=== PATIENT | female | born 1950 | race Caucasian/White ===

== ENCOUNTER 2017-02-26 09:57 | Emergency (ER) | payer OTHER, BC ==
[~2017-02-26] VITALS: Ht 152.4 cm; Wt 60.0 kg
[~2017-02-26 09:57] MED LIST: ALBU1AER9 INH; ASPI81TA28 PO; BACL1TAB PO; CETI10TA10 PO; FEXO1TAB46 PO; FLUO0.05 TD; HYDR-3124 PO; LEVO75TA5 PO; MONT1TAB3 PO; OMAL150S SQ; PRED10TA PO; RANI300T2 PO; SNQ/25 PO; TNR25 PO; TRIA0.1O12 TD; [UNRECOGNIZED DRUG - CODE] TD; [UNRECOGNIZED DRUG - CODE] TD
[2017-02-26 10:06] VITALS: Ht 152.4 cm; Wt 60.0 kg
[2017-02-26] MEDS ORDERED: ONDANSETRON INJ 2 MG/ML 2 ML VIAL IV STA (10:16)
[2017-02-26] MEDS ORDERED: MoRPHine SULFATE 4 MG/ML 1 ML CARP\\VIAL IV STA ×2 (10:16→11:49)
[2017-02-26 10:34] LABS: BASO % 0.3 %; BASO ABS # 0.02 K/uL (0-0.2); COMPLETE YES; EOS % 1.7 %; HEMATOCRIT 42.2 % (37-47); LYMPH % 29.9 %; LYMPH ABS # 1.73 K/uL (1.2-3.4); MEAN CELL VOLUME 87.4 fL (80-100); MEAN CORPUSCULAR HEMOGLOBIN 30.8 pg (25-34); MEAN CORPUSCULAR HGB CONC 35.3 g/dl (32-36); MEAN PLATELET VOLUME 10.4 fL (7.4-10.4); MONO % 10.9 %; NEUT % 57.2 %; PLATELET COUNT 209 K/uL (130-400); RED BLOOD COUNT 4.83 M/uL (4.2-5.4); WHITE BLOOD COUNT 5.78 K/uL (4.8-10.8)
[2017-02-26 10:42] LABS: ALT/SGPT 26 U/L (12-78); BLOOD UREA NITROGEN 13 mg/dl (7-18); BUN/CREATININE RATIO 16.6 (10-20); CARBON DIOXIDE 25 mmol/L (21-32); CHLORIDE 106 mmol/L (98-107); CREATININE 0.77 mg/dl (0.60-1.20); GLUCOSE 98 mg/dl (70-99); POTASSIUM 3.9 mmol/L (3.5-5.1); SODIUM 141 mmol/L (136-145)
[2017-02-26 10:44] VITALS: O2SAT 100
[2017-02-26] MEDS ORDERED: DXY50 PO (10:46)
[2017-02-26] MEDS ORDERED: CZR25 PO (10:46)
[2017-02-26] MEDS ORDERED: FLX10 PO (10:46)
[2017-02-26] MEDS ORDERED: SYMIN160 INH (10:46)
[2017-02-26 10:47] LABS: ALKALINE PHOSPHATASE 51 U/L (45-117); AST/SGOT 14 U/L (15-37); CKMB/CK RATIO 2.7 (0-3.0)
[2017-02-26] MEDS ORDERED: VNTHFA/IN INH (10:47)
--- NOTE | 2017-02-26 10:52 | DIAGNOSTIC IMAGING REPORT ---
CHEST ONE VIEW PORTABLE CLINICAL HISTORY: Fever, sepsis, chest pain radiating to the back. COMPARISON STUDY: 04/18/2014 FINDINGS: The heart is the upper limits of normal in size. There is no failure. There is no focal pulmonary consolidation. There are no pleural effusions.[ IMPRESSION: AP portable study. No acute findings. Electronically signed by: Vinay Armando M.D. 02/26/2017 10:51 AM Dictated Date/Time: 02/26/2017 10:50 AM
[2017-02-26 11:05] LABS: URINE APPEARANCE CLEAR (CLEAR); URINE BILIRUBIN NEG (NEG); URINE COLOR YELLOW; URINE NITRITE NEG (NEG); URINE SPECIFIC GRAVITY 1.017 (1.000-1.030); UROBILINOGEN NEG (NEG)
[2017-02-26 11:12] LABS: PROTHROMBIN TIME (PATIENT) 10.9 SECONDS (9.0-12.0)
[2017-02-26 11:18] LABS: MANUAL MICROSCOPIC REQUIRED? NO; REVIEW REQ? NO
[2017-02-26] MEDS ORDERED: KETOROLAC TROMETHAMINE 30 MG/ML VIAL IV STA (11:49)
[2017-02-26] MEDS ORDERED: CYCLOBENZAPRINE HCL 10 MG TAB ONE (11:58)
[2017-02-26] MEDS ORDERED: CYCLOBENZAPRINE HCL 5 MG TAB PO ONE (12:00)
[2017-02-26] MEDS ORDERED: DEXAMETHASONE SOD INJ 10 MG/ML VIAL IV ONE (12:00)
--- NOTE | 2017-02-26 12:43 | DIAGNOSTIC IMAGING REPORT ---
THORACIC SPINE CT CT DOSE: 870.03 mGy.cm HISTORY: Pain back pain TECHNIQUE: Multiaxial CT images of the thoracic spine were performed and reformatted in the sagittal and coronal plane without the use of contrast. COMPARISON: Chest CT 03/07/2016 FINDINGS: Moderate degenerative disc change throughout the entire thoracic region. No acute compression deformity. Mild anterior and anterolateral osteophytic change. No significant compromise of the spinal canal or neural foramina. Infiltrative change in both lung bases and paravertebral regions slightly progressive from the prior study. This is somewhat more prominent on the right. IMPRESSION: 1. Mild/moderate degenerative change of the thoracic spine with no acute process. 2. Paravertebral interstitial and/or fibrotic changes involving the lower lung regions bilaterally. 3. These findings are somewhat progressive compared to a prior study of 2015, raising the possibility of a nonspecific pneumonitis of the lower lobes. Electronically signed by: Almas Arreguin M.D. 02/26/2017 12:41 PM Dictated Date/Time: 02/26/2017 12:37 PM
[2017-02-26] MEDS ORDERED: CYCL10TA6 PO (13:29)
[2017-02-26] MEDS ORDERED: OXYC-57 PO (13:29)
--- NOTE | 2017-02-26 13:32 | EMERGENCY ROOM VISIT NOTE ---
History Report prepared by Christy: Crystal Trivedi Under the Supervision of: Dr. Kosta Blake D.O. First contact with patient: 10:11 Chief Complaint: CARDIAC ASSESSMENT Stated Complaint: BACK PAIN-PAIN GOING INTO CHEST HX: ANEURYSM Nursing Triage Summary: Pain started in shoulder blades and radiates to chest. Worse on inspiration. History of ascending aortic aneurysm 4.2 cm. Saw PCP thursday, had EKG done and was told it was "worse." Could not sleep last night due to pain. Vomited twice this am. History of Present Illness The patient is a 66 year old female who presents to the Emergency Room for a cardiac assessment. The patient was having right sided back pain throughout the day yesterday, but she states that it was mild. Around midnight last night her pain started moving into the middle of her back and it became much more severe. She was unable to get comfortable and she was unable to sleep all night due to her pain. Early this morning the patient developed nausea, vomiting, and shortness of breath. She states that her pain is constant but she gets occasional shooting pains from the middle of her back into her right shoulder blade. The patient rates her current pain as an 8/10 in severity. Movement exacerbates her pain. She has a history of an ascending aortic aneurysm. She saw her PCP two days ago because she was having some chest heaviness with exertion. She had an ECG done at that time. 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 The patient states that she had similar pain when she injured a disc in her neck previously. Source of History: patient Onset: yesterday Position: back Symptom Intensity: 8/10 Quality: other (shooting) Timing: worsening Modifying Factors (Worsening): movement Associated Symptoms: + SOB, + nausea, + vomiting Review of Systems See HPI for pertinent positives & negatives. A total of 10 systems reviewed and were otherwise negative. Past Medical & Surgical Medical Problems: (1) Abdominal aortic aneurysm (2) ASTHMA, UNSPECIFIED (3) DEPRESSIVE DISORDER NEC (4) HYPERLIPIDEMIA NEC/NOS (5) HYPOTHYROIDISM NOS Family History Heart disease Myocarditis Social History Smoking Status: Never Smoker Marital Status: Housing Status: lives with family Occupation Status: other Current/Historical Medications Scheduled Albuterol Hfa (Ventolin Hfa), 2 PUFFS INH Q6H Aspirin (Aspirin Ec), 81 MG PO DAILY Atenolol (Atenolol), 25 MG PO DAILY Budesonide/Formoterol Fumarate (Symbicort 160/4.5 Inhaler), 1 PUFF INH BID Cetirizine Hcl (Zyrtec), 20 MG PO BID Cyclobenzaprine Hcl (Flexeril), 10 MG PO TID Doxepin (Sinequan), 25 MG PO HS Doxycycline Hyclate (Doxycycline Hyclate), 50 MG PO DAILY Levothyroxine Sodium (Levothyroxine Sodium), 75 MCG PO DAILY Losartan Potassium (Losartan Potassium), 25 MG PO DAILY Scheduled PRN Baclofen (Lioresal), 10 MG PO UD PRN for Muscle Spasms Benzoyl Peroxide-Erythromycin (Erythromycin/Benzoyl [place]), 1 APPLN TD BID PRN for RASH Cyclobenzaprine HCl (Cyclobenzaprine HCl), 10 MG PO BID PRN for Muscle Spasms Oxycodone/Acetaminophen 5MG/325MG (Percocet 5MG/325MG), 1 TAB PO Q6H PRN for Pain Allergies Coded Allergies: Isotretinoin (Verified Allergy, Unknown, MYALGIAS, 02/26/17) Sulfa Drugs (Verified Allergy, Unknown, 02/26/17) Physical Exam Vital Signs Date Time Temp Pulse Resp B/P (MAP) Pulse Ox O2 Delivery O2 Flow Rate FiO2 02/26/17 13:59 59 18 127/89 100 02/26/17 12:51 58 15 133/81 98 Room Air 02/26/17 11:59 65 22 116/72 100 02/26/17 10:44 100 Room Air 02/26/17 10:44 99 Room Air 02/26/17 10:44 62 18 123/76 99 Room Air 02/26/17 10:28 73 02/26/17 10:14 100 Room Air 02/26/17 10:11 100 Room Air 02/26/17 10:06 71 30 147/106 100 Room Air Physical Exam CONSTITUTIONAL/VITAL SIGNS: Reviewed / noted above. GENERAL: Non-toxic in appearance. INTEGUMENTARY: Warm, dry, and [place]. HEAD: Normocephalic. EYES: without scleral icterus or trauma. ENT/OROPHARYNX: clear and moist. LYMPHADENOPATHY/NECK: Is supple without lymphadenopathy or meningismus. RESPIRATORY: Lungs clear and equal. CARDIOVASCULAR: Regular rate and rhythm. GI/ABDOMEN: Soft and nontender. No organomegaly or pulsatile mass. No rebound or guarding. Normal bowel sounds. EXTREMITIES: Warm and well perfused. BACK: Increased pain with movement. She is tender to palpation in the perispinal musculature of the mid and lower back. NEUROLOGICAL: Intact without focal deficits. PSYCHIATRIC: normal affect. MUSCULOSKELETAL: Normally developed with good muscle tone. Medical Decision & Procedures ER Provider Diagnostic Interpretation: Radiology results as stated below per my review and radiologist interpretation: CHEST ONE VIEW PORTABLE CLINICAL HISTORY: Fever, sepsis, chest pain radiating to the back. COMPARISON STUDY: 04/18/2014 FINDINGS: The heart is the upper limits of normal in size. There is no failure. There is no focal pulmonary consolidation. There are no pleural effusions.[ IMPRESSION: AP portable study. No acute findings. Electronically signed by: Vinay Armando M.D. 02/26/2017 10:51 AM Dictated Date/Time: 02/26/2017 10:[address] DOSE: 870.03 mGy.cm HISTORY: Pain back pain TECHNIQUE: Multiaxial CT images of the thoracic spine were performed and reformatted in the sagittal and coronal plane without the use of contrast. COMPARISON: Chest CT 03/07/2016 FINDINGS: Moderate degenerative disc change throughout the entire thoracic region. No acute compression deformity. Mild anterior and anterolateral osteophytic change. No significant compromise of the spinal canal or neural foramina. Infiltrative change in both lung bases and paravertebral regions slightly progressive from the prior study. This is somewhat more prominent on the right. IMPRESSION: 1. Mild/moderate degenerative change of the thoracic spine with no acute process. 2. Paravertebral interstitial and/or fibrotic changes involving the lower lung regions bilaterally. 3. These findings are somewhat progressive compared to a prior study of 2016, raising the possibility of a nonspecific pneumonitis of the lower lobes. Electronically signed by: Almas Arreguin M.D. 02/26/2017 12:41 PM Dictated Date/Time: 02/26/2017 12:37 PM Laboratory Results 02/26/17 10:12 Red Blood Count 4.83, Mean Corpuscular Volume 87.4, Mean Corpuscular Hemoglobin 30.8, Mean Corpuscular Hemoglobin Concent 35.3, Mean Platelet Volume 10.4, Neutrophils (%) (Auto) 57.2, Lymphocytes (%) (Auto) 29.9, Monocytes (%) (Auto) 10.9, Eosinophils (%) (Auto) 1.7, Basophils (%) (Auto) 0.3, Neutrophils # (Auto ) 3.30, Lymphocytes # (Auto) 1.73, Monocytes # (Auto) 0.63, Eosinophils # (Auto ) 0.10, Basophils # (Auto) 0.02 02/26/17 10:12 Test 02/26/17 10:12 02/26/17 10:40 White Blood Count 5.78 K/uL (4.8-10.8) Red Blood Count 4.83 M/uL (4.2-5.4) Hemoglobin 14.9 g/dL (12.0-16.0) Hematocrit 42.2 % (37-47) Mean Corpuscular Volume 87.4 fL (80-100) Mean Corpuscular Hemoglobin 30.8 pg (25-34) Mean Corpuscular Hemoglobin Concent 35.3 g/dl (32-36) Platelet Count 209 K/uL (130-400) Mean Platelet Volume 10.4 fL (7.4-10.4) Neutrophils (%) (Auto) 57.2 % Lymphocytes (%) (Auto) 29.9 % Monocytes (%) (Auto) 10.9 % Eosinophils (%) (Auto) 1.7 % Basophils (%) (Auto) 0.3 % Neutrophils # (Auto) 3.30 K/uL (1.4-6.5) Lymphocytes # (Auto) 1.73 K/uL (1.2-3.4) Monocytes # (Auto) 0.63 K/uL (0.11-0.59) Eosinophils # (Auto) 0.10 K/uL (0-0.5) Basophils # (Auto) 0.02 K/uL (0-0.2) RDW Standard Deviation 42.9 fL (36.4-46.3) RDW Coefficient of Variation 13.4 % (11.5-14.5) Immature Granulocyte % (Auto) 0.0 % Immature Granulocyte # (Auto) 0.00 K/uL (0.00-0.02) Prothrombin Time 10.9 SECONDS (9.0-12.0) Prothromb Time International Ratio 1.0 (0.9-1.1) Activated Partial Thromboplast Time 25.8 SECONDS (21.0-31.0) Partial Thromboplastin Ratio 1.0 D-Dimer 330 ug/L FEU (0-500) Anion Gap 10.0 mmol/L (3-11) Est Creatinine Clear Calc Drug Dose 59.0 ml/min Estimated GFR () 93.9 Estimated GFR (Non- 81.0 BUN/Creatinine Ratio 16.6 (10-20) Calcium Level 9.0 mg/dl (8.5-10.1) Total Bilirubin 0.6 mg/dl (0.2-1) Direct Bilirubin < 0.1 mg/dl (0-0.2) Aspartate Amino Transf (AST/SGOT) 14 U/L (15-37) Alanine Aminotransferase (ALT/SGPT) 26 U/L (12-78) Alkaline Phosphatase 51 U/L (45-117) Total Creatine Kinase 49 U/L (26-192) Creatine Kinase MB 1.3 ng/ml (0.5-3.6) Creatine Kinase MB Ratio 2.7 (0-3.0) Troponin I < 0.015 ng/ml (0-0.045) Total Protein 7.1 gm/dl (6.4-8.2) Albumin 4.0 gm/dl (3.4-5.0) Lipase 207 U/L (73-393) Urine Color YELLOW Urine Appearance CLEAR (CLEAR) Urine pH 6.0 (4.5-7.5) Urine Specific [place] 1.017 (1.000-1.030) Urine Protein NEG (NEG) Urine Glucose (UA) NEG (NEG) Urine Ketones NEG (NEG) Urine Occult Blood NEG (NEG) Urine Nitrite NEG (NEG) Urine Bilirubin NEG (NEG) Urine Urobilinogen NEG (NEG) Urine Leukocyte Esterase NEG (NEG) Laboratory results as stated above per my review. Medications Administered Medications (Trade) Dose Ordered Sig/Mery Route Start Time Stop Time Status Last Admin Dose Admin Morphine Sulfate (MoRPHine SULFATE INJ) 4 mg NOW STAT IV 02/26/17 10:16 02/26/17 10:18 DC 02/26/17 10:30 4 MG Ondansetron HCl (Zofran Inj) 4 mg NOW STAT IV 02/26/17 10:16 02/26/17 10:18 DC 02/26/17 10:27 4 MG Ketorolac Tromethamine (Toradol Inj) 30 mg NOW STAT IV 02/26/17 11:49 02/26/17 11:51 DC 02/26/17 12:02 30 MG Dexamethasone Sodium Phosphate (Decadron Inj) 10 mg NOW ONCE IV 02/26/17 12:00 02/26/17 12:01 DC 02/26/17 12:01 10 MG Morphine Sulfate (MoRPHine SULFATE INJ) 4 mg NOW STAT IV 02/26/17 11:49 02/26/17 11:51 DC 02/26/17 12:04 4 MG Cyclobenzaprine HCl (Flexeril Tab) 10 mg STK-MED ONCE .ROUTE 02/26/17 11:58 02/26/17 11:59 DC 02/26/17 12:05 10 MG ECG Indication: back/shoulder pain Rate (beats per minute): 67 Rhythm: normal sinus Findings: ST depression (inferior and lateral), no ectopy Comparison ECG Date: 02/24/2017 Change: no significant change Change: Also compared to ECG from 2013: Similar to previous but slightly more prominent T-wave changes. ED Course 1022: Previous medical records were reviewed. The patient was evaluated in room B3B. A complete history and physical examination was performed. 1016: Zofran 4 mg IV, Morphine sulfate 4 mg IV 1141: I reevaluated the patient at this time. She is still having pain and is going to get a CT scan. 1149: Morphine sulfate 4 mg IV, Toradol 30 mg IV 1158: Flexeril 10 mg PO 1200: Decadron 10 mg IV 1321: I reassessed the patient at this time. She is feeling better and resting comfortably. I discussed the results and treatment plan with the patient. I answered all pertaining questions that she had. She expressed understanding and verbalized agreement. The patient will be discharged home. Medical Decision Differential considered includes cauda equina syndrome, conus medullaris, spinal cord compression syndrome, peripheral nerve compression, fractures or subluxations, intra-abdominal pathology such as abdominal aortic aneurysm or kidney stones, muscle strain, transverse myelitis, spinal cord injury. Medication Reconciliation: I attest that I have personally reviewed the patient' s current medication list. Blood pressure Screening: Patient was found to have normal blood pressure on screening and does not require follow-up. This is a 66-year-old female who presents to the ED with a chief complaint of back pain. The patient states that her symptoms started in the shoulder blade area and now moved to the mid back. She reported some increased pain with movement as well as deep breathing. Her physical exam revealed some tenderness on palpation of the paraspinal musculature. She does have a history of an aortic aneurysm. Her CBC was normal. D-dimer is negative as is troponin. Complete metabolic panel was normal. Lipase was negative. Urine did not show infection. Chest x-ray is negative for acute disease. CT scan of the thoracic spine reveals degenerative changes otherwise nothing acute. Patient was treated with IV morphine, IV Zofran, IV Toradol, IV Decadron and Flexeril by mouth. On reassessment, her symptoms have improved. She is feeling more comfortable. She'll be discharged on Flexeril and Percocet. She is felt to be stable for discharge at this time. Impression Primary Impression: Back muscle spasm Scribe Attestation The scribe's documentation has been prepared under my direction and personally reviewed by me in its entirety. I confirm that the note above accurately reflects all work, treatment, procedures, and medical decision making performed by me. Departure Information Dispostion Home / Self-Care Prescriptions Cyclobenzaprine Hcl (FLEXERIL) 10 Mg Tab 10 MG PO TID, #21 TAB Prov: Kosta Blake D.O. 02/26/17 Oxycodone/Acetaminophen 5MG/325MG (PERCOCET 5MG/325MG) Tab 1 TAB PO Q6H Y for Pain, #20 TAB Prov: Kosta Blake D.O. 02/26/17 Referrals Marcy Rodriguez M.D. (PCP) Patient Instructions ED Spasm Back No Trauma, My [facility] Additional Instructions Percocet as prescribed. No driving within 6 hours of use. Do not take additional Tylenol while taking Percocet. Flexeril as prescribed for muscle spasm. May cause drowsiness. Follow-up with your doctor for further care and evaluation in 1-2 days. Return to the emergency department for worsening or new symptoms or any concerns. You have been examined and treated today on an emergency basis only. This is not a substitute for, or an effort to provide, complete comprehensive medical care. It is impossible to recognize and treat all injuries or illnesses in a single emergency department visit. It is therefore important that you follow up closely with your doctor. Call as soon as possible for an appointment.
[2017-02-26 13:59] VITALS: BP 127/89; PULSE 59; O2SAT 100
== END 2017-02-26 13:55 | disposition home or self-care (01) ==
LOC: C.EDB 09:59
DX: M62.830 Muscle spasm of back (principal); I71.4 Abdominal aortic aneurysm, without rupture; J45.909 Unspecified asthma, uncomplicated; R06.02 Shortness of breath; F32.9 Major depressive disorder, single episode, unspecified; E78.5 Hyperlipidemia, unspecified; E03.9 Hypothyroidism, unspecified; M51.34 Other intervertebral disc degeneration, thoracic region; Z79.82 Long term (current) use of aspirin

== ENCOUNTER → 2017-03-03 | Outpatient (CLI) | payer OTHER, BC ==
[~2017-03-03] MED LIST changes: -ALBU1AER9 INH; +CYCL10TA6 PO; +CZR25 PO; +DXY50 PO; -FEXO1TAB46 PO; -FLUO0.05 TD; +FLX10 PO; -HYDR-3124 PO; -MONT1TAB3 PO; -OMAL150S SQ; +OXYC-57 PO; -PRED10TA PO; -RANI300T2 PO; +SYMIN160 INH; -TRIA0.1O12 TD; +VNTHFA/IN INH; -[UNRECOGNIZED DRUG - CODE] TD
== END | disposition home or self-care (01) ==
LOC: C.LAB 15:01
PROVIDERS: ATTEND Physician Assistant
DX: J45.909 Unspecified asthma, uncomplicated (principal)

== ENCOUNTER → 2017-03-23 | Outpatient (CLI) | payer OTHER, BC ==
[~2017-03-23] MED LIST changes: -CYCL10TA6 PO
--- NOTE | 2017-03-23 12:23 | DIAGNOSTIC IMAGING REPORT ---
CT OF THE CHEST WITHOUT IV CONTRAST CLINICAL HISTORY: Abnormal lung CT. Shortness of breath. COMPARISON STUDY: Chest CT March 07, 2016 and June 11, [address] February 26, 2017. CT DOSE: 295.76 mGycm TECHNIQUE: Axial images of the chest were obtained without IV contrast. Images were reviewed in the axial, sagittal, and coronal planes. IV contrast was not administered for this examination. FINDINGS: No enlarged axillary, mediastinal or hilar lymph nodes are present. Mild dilatation of the ascending aorta, measuring 4 cm at the level the main pulmonary artery is unchanged. There is mild to moderate cardiomegaly. No pericardial effusion is present. No pneumothorax or pleural effusion is present. Ground glass opacities within the right lower lobe suggest atelectasis. There is no consolidation to suggest pneumonia. A 4 mm lingular nodule shown on image 95 of 276 is unchanged. Bony thorax is unremarkable. Visualized portions of the upper abdomen demonstrate scarring within the upper pole of the left kidney. Gallbladder is surgically absent. IMPRESSION: 1. No acute findings within the chest. 2. Subpleural right lower lobe opacity which favors atelectasis. 3. Stable 4 mm lingular nodule which is benign given stability. 4. Stable mild dilatation of the ascending aorta, measuring 4 cm. Electronically signed by: Joce Elizondo M.D. 03/23/2017 12:22 PM Dictated Date/Time: 03/23/2017 12:14 PM
== END | disposition home or self-care (01) ==
LOC: C.CTS 10:50
PROVIDERS: ATTEND Physician Assistant
DX: R91.8 Other nonspecific abnormal finding of lung field (principal)

== ENCOUNTER 2023-05-05 10:47 | Inpatient (IN) ==
--- NOTE | 2023-04-09 13:42 | Anesthesiology Progress Note ---
Date of Service April 09, 2023 Anesthesia Post Procedure Transfer of Care Handoff Completed per policy Notes Mental Status: alert / awake / arousable Patient Amnestic to Procedure: Yes Nausea / Vomiting: adequately controlled Pain: adequately controlled Airway Patency, RR, SpO2: stable & adequate BP & HR: stable & adequate Hydration State: stable & adequate Anesthetic Complications: no major complications apparent
--- NOTE | 2023-04-13 11:24 | PAT Medication Instructions ---
Medication Instructions Date of Service April 13, 2023 Home Medications Medication Instructions Recorded albuterol sulfate 90 mcg/actuation 2 inh inhalation Q4H PRN shortness 06/18/20 breath activated powder inhaler of breath or wheezing #1 ea ipratropium 0.5 mg-albuterol 3 mg 3 ml inhalation QID PRN wheezing 09/10/20 (2.5 mg base)/3 mL nebulization #180 mL soln ipratropium bromide 21 mcg (0.03 See Rx Instructions .Route 06/09/22 %) nasal spray .COMPLEX #30 mL zafirlukast 20 mg tablet See Rx Instructions .Route 06/09/22 .COMPLEX #60 tabs misoprostol 200 mcg tablet 200 mcg vaginal ONCE #3 tabs 03/30/23 albuterol sulfate 2.5 mg/3 mL (0.083 %) solution for nebulization 1.25 mg inhalation Q4H PRN doxycycline hyclate 50 mg capsule 50 mg PO DAILY PRN epinephrine 0.3 mg/0.3 mL injection, auto-injector 0.3 mg IM Q10M PRN losartan 25 mg tablet 25 mg PO QAM baclofen 10 mg tablet 10 mg PO DAILY PRN albuterol sulfate 90 mcg/actuation breath activated powder inhaler 2 inh inhalation Q4H PRN ipratropium 0.5 mg-albuterol 3 mg (2.5 mg base)/3 mL nebulization soln 3 ml inhalation QID PRN budesonide-formoterol HFA 80 mcg-4.5 mcg/actuation aerosol inhaler (Symbicort) 1 inh inhalation BID tiotropium bromide 1.25 mcg/actuation mist for inhalation (Spiriva Respimat) 2 puff inhalation BID gabapentin 100 mg capsule 100 mg PO DAILY PRN ipratropium bromide 21 mcg (0.03 %) nasal spray See Rx Instructions .Route .COMPLEX rosuvastatin 5 mg tablet 25 mg PO QAM spironolactone 25 mg tablet 50 mg PO QAM zafirlukast 20 mg tablet See Rx Instructions .Route .COMPLEX misoprostol 200 mcg tablet 200 mcg vaginal ONCE aspirin 81 mg capsule 81 mg PO QAM azelastine 137 mcg (0.1 %) nasal spray aerosol 1 spray intranasal QAM cetirizine 5 mg tablet 5 mg PO DAILY fluticasone propionate 50 mcg/actuation nasal spray,suspension 1 spray intranasal BID levothyroxine 75 mcg tablet 75 mcg PO QAM metoprolol tartrate 25 mg tablet 25 mg PO QAM Continue as directed ipratropium bromide 21 mcg (0.03 %) nasal spray See Rx Instructions .Route .COMPLEX zafirlukast 20 mg tablet See Rx Instructions .Route .COMPLEX gabapentin 100 mg capsule 100 mg PO DAILY PRN(if needed) doxycycline hyclate 50 mg capsule 50 mg PO DAILY PRN(if needed) epinephrine 0.3 mg/0.3 mL injection, auto-injector 0.3 mg IM Q10M PRN(if needed) ASK your prescriber and surgeon misoprostol 200 mcg tablet 200 mcg vaginal ONCE aspirin 81 mg capsule 81 mg PO QAM DO NOT take the morning of surgery losartan 25 mg tablet 25 mg PO QAM baclofen 10 mg tablet 10 mg PO DAILY PRN spironolactone 25 mg tablet 50 mg PO QAM cetirizine 5 mg tablet 5 mg PO DAILY Take morning of surgery With a small sip of water, OTHERWISE NOTHING TO EAT OR DRINK AFTER MIDNIGHT: albuterol sulfate 2.5 mg/3 mL (0.083 %) solution for nebulization 1.25 mg inhalation Q4H PRN(if needed) albuterol sulfate 90 mcg/actuation breath activated powder inhaler 2 inh inhalation Q4H PRN(if needed) ipratropium 0.5 mg-albuterol 3 mg (2.5 mg base)/3 mL nebulization soln 3 ml inhalation QID PRN(if needed) budesonide-formoterol HFA 80 mcg-4.5 mcg/actuation aerosol inhaler (Symbicort) 1 inh inhalation BID tiotropium bromide 1.25 mcg/actuation mist for inhalation (Spiriva Respimat) 2 puff inhalation BID azelastine 137 mcg (0.1 %) nasal spray aerosol 1 spray intranasal QAM fluticasone propionate 50 mcg/actuation nasal spray,suspension 1 spray intranasal BID levothyroxine 75 mcg tablet 75 mcg PO QAM metoprolol tartrate 25 mg tablet 25 mg PO QAM Take evening before surgery albuterol sulfate 2.5 mg/3 mL (0.083 %) solution for nebulization 1.25 mg inhalation Q4H PRN(if needed) albuterol sulfate 90 mcg/actuation breath activated powder inhaler 2 inh inhalation Q4H PRN(if needed) ipratropium 0.5 mg-albuterol 3 mg (2.5 mg base)/3 mL nebulization soln 3 ml inhalation QID PRN(if needed) budesonide-formoterol HFA 80 mcg-4.5 mcg/actuation aerosol inhaler (Symbicort) 1 inh inhalation BID tiotropium bromide 1.25 mcg/actuation mist for inhalation (Spiriva Respimat) 2 puff inhalation BID fluticasone propionate 50 mcg/actuation nasal spray,suspension 1 spray intranasal BID Other Notes If you have any questions please call us at [phone] or [phone] or [phone] or [phone]
--- NOTE | 2023-04-21 11:02 | Anesthesiology Consultation ---
Date of Service April 21, 2023 Assessment & Plan (1) Encounter for pre-operative examination: Plan - waiting for Claudia with surgeon's office confirmation of procedure details, pt believes procedure is L1-S1 decompression/fusion with instrumentation replacement to pre-existing hardware. - awaiting surgeon ordered medical clearance. - cardiology clearance 04/20/23 [facility]: "...moderate risk...cleared for scheduled surgery..." - cardiology 04/02/23 [facility]: "...preoperative cardiology consultation...Notes plans for spinal fusion by Dr. Valdivia at [facility] (unscheduled). Notes undergoing cardiac workup while in [place] the spring, nuclear stress test leading to diagnostic cardiac catheterization revealing angiographically normal coronary arteries on November 21, 2022. Echo in December 2022 with preserved LV systolic function, EF 55 to 60%, diastolic dysfunction , mild aortic, mitral, and tricuspid regurgitation, mildly dilated aortic root. No exertional or activity related chest discomfort, significantly limited by the back pain. No tachypalpitations. Stable shortness of breath. No fluid retention now that she is back on spironolactone...preoperative cardiology consultation as detailed above. Patient with a chronically abnormal EKG; results today unchanged compared to prior. Diagnostic cardiac catheterization in November 2022 revealed angiographically normal coronary arteries. Resting echocardiography in December 2022 with preserved LV systolic function, mild valve issues only, diastolic dysfunction. Options discussed. Risks explained. No overt cardiac contraindications to surgery as planned. Recommend uninterrupted continuation of metoprolol throughout the perioperative period Recommend holding losartan and spironolactone the morning of the procedure, resuming postoperatively as hemodynamics permit. OK to interrupt aspirin if needed, resuming postoperatively when determined to be safe..." Chart Review Chart Review: Pending: Refer to Additional Notes / Consult section and Patient seen in Pre Admission Testing Teaching & Discussion Pre-Anesthesia Teaching/Discussion Notes: Instructed NPO after midnight before surgery, except medications with 15 cc of water. Medication instructions provided according to the PAT guidelines. History Surgery Operation Date: 05/05/23 07:45 Proposed Procedures p Posterior Fusion Instrumentation - Austin Valdivia DO Height/Weight Height: 5 ft Weight: 73.1 kg Allergies Allergy/AdvReac Type Severity Reaction Status Date / Time diphtheria, pertussis, Allergy Intermediate rash Verified 04/21/23 13:19 tetanus vacc isotretinoin Allergy Unknown MYALGIAS Verified 04/13/23 10:09 latex Allergy Unknown Rash Verified 04/13/23 10:09 Sulfa (Sulfonamide Allergy Unknown Rash Verified 04/13/23 10:09 Antibiotics) Medications Home Medications Medication Instructions Recorded Confirmed Last Taken albuterol sulfate 2.5 mg/3 mL 1.25 mg inhalation Q4H PRN 04/28/19 04/13/23 Unknown (0.083 %) solution for nebulization Shortness Of Breath Or Wheezing doxycycline hyclate 50 mg capsule 50 mg PO DAILY PRN acne flare up 04/28/19 04/13/23 Unknown epinephrine 0.3 mg/0.3 mL 0.3 mg IM Q10M PRN Allergic 04/28/19 04/13/23 Unknown injection, auto-injector Reaction losartan 25 mg tablet 25 mg PO QAM 05/03/19 04/13/23 04/08/23 09:00 baclofen 10 mg tablet 10 mg PO DAILY PRN Muscle Spasm 03/14/20 04/13/23 Unknown albuterol sulfate 90 mcg/actuation 2 inh inhalation Q4H PRN shortness 06/18/20 04/13/23 04/08/23 11:00 breath activated powder inhaler of breath or wheezing #1 ea ipratropium 0.5 mg-albuterol 3 mg 3 ml inhalation QID PRN wheezing 09/10/20 04/13/23 Unknown (2.5 mg base)/3 mL nebulization #180 mL soln budesonide-formoterol HFA 80 1 inh inhalation BID 02/26/22 04/13/23 04/08/23 10:00 mcg-4.5 mcg/actuation aerosol inhaler (Symbicort) tiotropium bromide 1.25 2 puff inhalation BID 02/26/22 04/13/23 04/08/23 15:00 mcg/actuation mist for inhalation (Spiriva Respimat) gabapentin 100 mg capsule 100 mg PO DAILY PRN Pain 06/09/22 04/13/23 03/19/23 10:00 ipratropium bromide 21 mcg (0.03 See Rx Instructions .Route 06/09/22 04/13/23 Unknown %) nasal spray .COMPLEX #30 mL rosuvastatin 5 mg tablet 25 mg PO QAM 09/04/13/23 04/08/23 09:00 spironolactone 25 mg tablet 50 mg PO QAM 06/09/22 04/13/23 04/08/23 09:00 zafirlukast 20 mg tablet See Rx Instructions .Route 06/09/22 04/13/23 04/08/23 10:00 .COMPLEX #60 tabs aspirin 81 mg capsule 81 mg PO QAM 04/01/23 04/13/23 04/08/23 10:00 azelastine 137 mcg (0.1 %) nasal 1 spray intranasal QAM 04/01/23 04/13/23 04/02/23 10:00 spray aerosol cetirizine 5 mg tablet 5 mg PO DAILY 04/01/23 04/13/23 04/07/23 19:00 fluticasone propionate 50 1 spray intranasal BID 04/01/23 04/13/23 04/07/23 21:00 mcg/actuation nasal spray,suspension levothyroxine 75 mcg tablet 75 mcg PO QAM 04/01/23 04/13/23 04/08/23 09:00 metoprolol tartrate 25 mg tablet 25 mg PO QAM 04/01/23 04/13/23 04/09/23 07:00 Past Medical History Medical History (Updated 04/21/23 @ 13:19 by Janina Patel PA-C) Acne vulgaris occasional flare up Asthma uses inhalers daily Diverticulitis last episode > 1 month ago GERD (gastroesophageal reflux disease) stable per pt History of basal cell carcinoma back s/p excision > 30 yrs ago HTN (hypertension) controlled, stable per pt Hyperlipidemia Hypothyroidism Pulmonary nodule Thoracic aortic aneurysm 4.3 cm, monitoring - follows w/ S Samir Galvez Patient denies h/o stroke, seizures, heart attack, heart failure, DM, blood clots or blood transfusions. Exercise / Class Metabolic Activity II 4-5 Yardwork/Stairs/Walk up hill (occ shortness of breath with stairs if experiencing asthma flare, otherwise no shortness of breath with usual activities, denies chest discomfort; denies recent shortness of breath with act ivities) Past Family History Family History Mother Alzheimer disease Father Atrial fibrillation Denies family history of Ovarian cancer Breast cancer Colorectal cancer Past Surgical History Surgical History H/O dilation and curettage H/O Spinal surgery History of hysteroscopy History of tubal ligation Hx of appendectomy Hx of cardiac catheterization 11/2022- no stents - done at [facility] [place], [place] Hx of colonoscopy Hx of resection of large bowel sigmoid, diverticulitis Hx of tonsillectomy S/P cholecystectomy Past Anesthesia History No Hx of Anesthesia Complications and No Family Hx of Anesthesia Complications History of PONV No Hx of PONV and Hx of Motion Sickness Social History Smoking Status: Never smoker Do You Dip or Chew Tobacco: No Hx Alcohol Use: No Hx Substance Use: No substance use type: does not use Review of Systems Patient denies chest pain, snoring, witnessed apneas, reflux, fever, chills, cough, wheezing, or palpitations. Physical Exam Vital Signs Vitals BP 118/82 P 66 TEMP 97.7 SP02 98% on RA RESP 18 Physical Patient resting comfortably in chair in NAD, alert and oriented, responding appropriately throughout visit Full cervical extension range of motion without pain TMD 3.5 finger breadths Mallampati Score 2 Dentition: one crown, denies chipped or loose teeth, caps, implants or bridges Lungs: normal respiratory effort. Good air movement, clear throughout to auscultation, no adventitious breath sounds Cardiac: regular rate and rhythm, no murmurs noted Carotid arteries: negative bruit bilat Lab Results Anesthesia Preop Results Results Anesthesia Widget: WBC 5.97 K/ul (4.8-10.8) 03/30/23 Hgb 14.6 g/dl (12.0-16.0) 03/30/23 Hct 42.1 % (37.0-47.0) 03/30/23 Plt 178 K/uL (130-400) 03/30/23 Na 135 mmol/L (136-145) L 04/09/23 K 3.7 mmol/L (3.5-5.1) 04/09/23 Cl 104 mmol/L (98-107) 04/09/23 CO2 22 mmol/L (21-32) 04/09/23 BUN 18 mg/dl (6-23) 04/09/23 Creat 0.79 mg/dl (0.6-1.2) 04/09/23 Glucose Level 110 mg/dl (70-99(Fasting)) H 04/09/23 PT 11.4 Seconds (9.0-12.0) 04/21/23 PTT 27.3 Seconds (21.0-31.0) 04/21/23 INR 1.0 (0.9-1.1) 04/21/23 Urine Color Yellow 04/21/23 Urine Appearance Clear (Clear) 04/21/23 Urine pH 6.0 (4.5-7.5) 04/21/23 Urine Specific Sims 1.013 (1.000-1.030) 04/21/23 Urine Protein Negative (Negative) 04/21/23 Urine Glucose (UA) Negative (Negative) 04/21/23 Urine Ketones Negative (Negative) 04/21/23 Urine Blood Negative (Negative) 04/21/23 Urine Nitrite Negative (Negative) 04/21/23 Urine Bilirubin Negative (Negative) 04/21/23 Urine Urobilinogen Negative (Negative) 04/21/23 Urine Leukocyte Esterase Negative (Negative) 04/21/23 Blood Type A Negative 04/21/23 Antibody Screen NEGATIVE 04/21/23 Testing Electrocardiogram Date: 04/02/23 Sinus rhythm with PACs, rate [address] and T wave abnormality, consider inferior ischemia ST &T wave abnormality, consider anterolateral ischemia When compared with 03/27/22 EKG, PACs are now present Obtained at same cardio appt: "...When compared to prior available tracings, there was no significant change..." Chest X-Ray Date: 04/21/23 No acute chest disease Echocardiogram Date: 01/05/23 EF 55-60% Borderline cLVH Mild mitral regurgitation Mild tricuspid regurgitation Mildly dilated aortic root at 4. 2cm RVSP at 45 mmHg Stress Test Date: 12/22/19 No significant stress-induced ischemia Cardiac Catheterization Date: 11/21/22 Normal coronary arteries Other Testing Carotid doppler 06/11/22 < 50% stenosis ICAs bilat CTA chest 12/22/19 Ascending thoracic aorta measures 4.4 cm in greatest diameter which is top normal in size. No aortic dissection. Cardiomegaly
[~2023-05-05 10:47] MED LIST changes: +ACETAMINOPHEN 500 MG TAB PO SCH; -ASPI81TA28 PO; -BACL1TAB PO; -CETI10TA10 PO; -CZR25 PO; -DXY50 PO; -FLX10 PO; +GABAPENTIN 300 MG CAP PO SCH; -LEVO75TA5 PO; +LR 15ML/HR IV SCH; +LR 60ML/HR IV SCH; -OXYC-57 PO; -SNQ/25 PO; -SYMIN160 INH; -TNR25 PO; -VNTHFA/IN INH; -[UNRECOGNIZED DRUG - CODE] TD; +ceFAZolin 2000MG 2,000 MG/15 ML SYR IV SCH
--- NOTE | 2023-05-05 10:58 | History & Physical Bridge Note ---
Date of Service May 05, 2023 History & Physical Bridge Note I have examined the patient, reviewed the History & Physical and in the interval since the performance of the History & Physical I have noted the following changes of clinical significance: no changes noted
--- NOTE | 2023-05-05 10:59 | History & Physical Report ---
Date of Service May 05, 2023 Assessment & Plan (1) Neurogenic claudication due to lumbar spinal stenosis: Plan: L2-L4 decompression and fusion, L4-S1 hardware removal History of Present Illness Chief Complaint: Back and leg pain Primary Care Provider: Kimo Dick MD This is a 72-year-old female who presents with chronic persistent back and leg pain after failing course of nonoperative care is here for surgical invention. Allergies Allergy/AdvReac Type Severity Reaction Status Date / Time diphtheria, pertussis, Allergy Intermediate rash Verified 04/21/23 13:19 tetanus vacc isotretinoin Allergy Unknown MYALGIAS Verified 04/13/23 10:09 latex Allergy Unknown Rash Verified 04/13/23 10:09 Sulfa (Sulfonamide Allergy Unknown Rash Verified 04/13/23 10:09 Antibiotics) Home Medications Medication Instructions Recorded Confirmed Type albuterol sulfate 2.5 mg/3 mL 1.25 mg inhalation Q4H PRN 04/28/19 04/13/23 History (0.083 %) solution for nebulization Shortness Of Breath Or Wheezing doxycycline hyclate 50 mg capsule 50 mg PO DAILY PRN acne flare up 04/28/19 04/13/23 History epinephrine 0.3 mg/0.3 mL 0.3 mg IM Q10M PRN Allergic 04/28/19 04/13/23 History injection, auto-injector Reaction losartan 25 mg tablet 25 mg PO QAM 05/03/19 04/13/23 History baclofen 10 mg tablet 10 mg PO DAILY PRN Muscle Spasm 03/14/20 04/13/23 History albuterol sulfate 90 mcg/actuation 2 inh inhalation Q4H PRN shortness 06/18/20 04/13/23 Rx breath activated powder inhaler of breath or wheezing #1 ea ipratropium 0.5 mg-albuterol 3 mg 3 ml inhalation QID PRN wheezing 09/10/20 04/13/23 Rx (2.5 mg base)/3 mL nebulization #180 mL soln budesonide-formoterol HFA 80 1 inh inhalation BID 02/26/22 04/13/23 History mcg-4.5 mcg/actuation aerosol inhaler (Symbicort) tiotropium bromide 1.25 2 puff inhalation BID 02/26/22 04/13/23 History mcg/actuation mist for inhalation (Spiriva Respimat) gabapentin 100 mg capsule 100 mg PO DAILY PRN Pain 06/09/22 04/13/23 History ipratropium bromide 21 mcg (0.03 See Rx Instructions .Route 06/09/22 04/13/23 Rx %) nasal spray .COMPLEX #30 mL rosuvastatin 5 mg tablet 25 mg PO QAM 06/09/22 04/13/23 History spironolactone 25 mg tablet 50 mg PO QAM 06/09/22 04/13/23 History zafirlukast 20 mg tablet See Rx Instructions .Route 06/09/22 04/13/23 Rx .COMPLEX #60 tabs aspirin 81 mg capsule 81 mg PO QAM 04/01/23 04/13/23 History azelastine 137 mcg (0.1 %) nasal 1 spray intranasal QAM 04/01/23 04/13/23 History spray aerosol cetirizine 5 mg tablet 5 mg PO DAILY 04/01/23 04/13/23 History fluticasone propionate 50 1 spray intranasal BID 04/01/23 04/13/23 History mcg/actuation nasal spray,suspension levothyroxine 75 mcg tablet 75 mcg PO QAM 04/01/23 04/13/23 History metoprolol tartrate 25 mg tablet 25 mg PO QAM 04/01/23 04/13/23 History Past Med/Surg History Medical History (Updated 05/05/23 @ 10:59 by Austin Valdivia DO) Acne vulgaris occasional flare up Asthma uses inhalers daily Diverticulitis last episode > 1 month ago GERD (gastroesophageal reflux disease) stable per pt History of basal cell carcinoma back s/p excision > 30 yrs ago HTN (hypertension) controlled, stable per pt Hyperlipidemia Hypothyroidism Pulmonary nodule Thoracic aortic aneurysm 4.3 cm, monitoring - follows w/ Juan M Galvez Surgical History H/O dilation and curettage H/O Spinal surgery History of hysteroscopy History of tubal ligation Hx of appendectomy Hx of cardiac catheterization 11/2022- no stents - done at [facility]. [place], [place] Hx of colonoscopy Hx of resection of large bowel sigmoid, diverticulitis Hx of tonsillectomy S/P cholecystectomy Family History Mother Alzheimer disease Father Atrial fibrillation Denies family history of Ovarian cancer Breast cancer Colorectal cancer Social History Smoking Status: Never smoker Second Hand Exposure: No; Do You Dip or Chew Tobacco: No; Hx Alcohol Use: No Hx Substance Use: No Preferred Language: Danish Communication Ability: Effective Medical Claims Processor Required: No Beliefs That Will Affect Care: None marital status: Current Living Situation: Spouse current occupational status: retired Feels Safe at Home: Yes Safety Concerns: Feels Safe At This Time Assistive Devices: None Physical Exam Physical Exam: Patient is alert and oriented Heart regular rhythm Lungs clear
[2023-05-05] MEDS ORDERED: PROMETHAZINE HCL 6.25 MG in SODIUM CHLORIDE 0.9% 50 ML IV PRN (12:41)
[2023-05-05] MEDS ORDERED: fentaNYL citrate PF 100 MCG/2 ML VIAL IV PRN (12:41)
[2023-05-05] MEDS ORDERED: ATROPINE SULFATE 0.1 MG/ML 10ML SYR IV PRN (12:41)
[2023-05-05] MEDS ORDERED: HYDROmorphone INJ 2 MG/ML SYR/VIAL IV PRN (12:41)
[2023-05-05] MEDS ORDERED: ONDANSETRON INJ 2 MG/ML 2 ML VIAL IV PRN (12:41)
[2023-05-05] MEDS ORDERED: ePHEDrine sulfate 50 MG/ML AMP IV PRN (12:41)
[2023-05-05] MEDS ORDERED: PROPOFOL IV EMULSION 10 MG/ML 20 ML VIAL IV ONE (13:02)
[2023-05-05] MEDS ORDERED: DEXAMETHASONE SOD INJ 4 MG/ML VIAL ONE (13:02)
[2023-05-05] MEDS ORDERED: MIDAZOLAM HCL 1 MG/ML 2ML VIAL ONE (13:02)
[2023-05-05] MEDS ORDERED: ROCURONIUM BROMIDE 10 MG/ML 5 ML VIAL IV ONE ×3 (13:02→16:04)
[2023-05-05] MEDS ORDERED: LIDOCAINE 2% 2 ML VIAL/AMP(20MG/ML) INFIL ONE (13:02)
[2023-05-05] MEDS ORDERED: fentaNYL citrate PF 100 MCG/2 ML VIAL ONE ×2 (13:02→16:13)
[2023-05-05] MEDS ORDERED: ONDANSETRON INJ 2 MG/ML 2 ML VIAL ONE (13:02)
[2023-05-05] MEDS ORDERED: BUPIVACAINE/EPINEPHRINE 0.25% 1:200,000 30 ML VIAL ONE (14:06)
[2023-05-05] MEDS ORDERED: ceFAZolin 330 MG/ML 1 GM VIAL ONE (14:06)
[2023-05-05] MEDS ORDERED: ePHEDrine sulfate 50 MG/ML SYR ONE (14:46)
[2023-05-05] MEDS ORDERED: FLOSEAL HEMOSTATIC MATRIX 10ML TOP ONE (15:32)
[2023-05-05] MEDS ORDERED: SUGAMMADEX SODIUM 200 MG/2 ML VIAL IV ONE (17:07)
--- NOTE | 2023-05-05 17:21 | Operative Report ---
Post Operative Report Pre & Post Diagnosis Operation Date: 05/05/23 12:25 Pre-Op Diagnosis: Lumbar spinal stenosis with neurogenic claudication Post-Op Diagnosis: Same I identified the patient and participated in the time-out.: Yes Procedure Operation Date: 05/05/23 12:25 Actual Procedures #1 removal of posterior instrumentation L4-5 L5-S1. #2 exploration of fusion L4-L5 L5-S1. #3 revision decompression including bilateral medial facetectomies and foraminotomies L2-L3 L3-L4. #4 posterior spinal fusion L2-L4. #5 placement posterior instrumentation L2-S1. #6 interbody fusion L2-L3 L3-L4 per #7 placement of Spira 10 x 26 mm at L2-L3 Che by 26 mm at L3-L4. #8 placement locally harvested morselized autograft and posterior gutters today #9 placement of I factor in the interbody spaces and infuse collagen sponge bone mass graft in the posterior gutters. Surgeon Austin Valdivia, Jet Operator Treasure Snider Estimated Blood Loss 100 Findings Consistent with Post-Op Diagnosis Specimens None Indications This is a 72-year-old female presents above-mentioned diagnosis after failing course of nonoperative care she is here for surgical invention. Description of Procedure Patient was met with identified informed consent obtained. Patient was then taken to the operative suite underwent ablation placed in a prone position on the [place] table top Jaiden frame. All bony prominences well-padded eyes inspected to ensure no external pressure placed upon them. This point the lumbar spine was prepped and draped in a sterile fashion. Sharp dissection with the assistance of Bovie cautery to form down to and exposing the remaining lamina and transverse processes of L2-L3 and instrumentation L4-5 and S1 levels bilaterally. I then proceeded with the hardware bilaterally incidental durotomy was noted when removing one of the pedicle screws. Was able to primary closed this with interrupted Nurolon and DuraSeal. I then performed a revision complete laminectomy of L3 and L2 including bilateral medial facetectomies and foraminotomies addressing severe spinal stenosis. Pedicle screws were then placed in L2-L3-L4 and S1 on the right and L2-L3 of L4 for L5 on the left. Proper size rods were then contoured and placed. By way of transforaminal approach and right complete discectomy of L3-L4 was performed endplates guided to subcortically bone and a 11 x 26 mm Spira cage with I factor tapped in position. Then proceeded L2-L3 and again by way of transforaminal portion of right complete discectomy performed endplates guided to subcortically bone and a 10 x 26 mm Spira cage with I factor tapped in position. The rods were then locked in final position bilaterally. The transverse processes of L to L3-L4 burred to subcortical bleeding bone infuse collagen sponge from mass graft laced in the posterior gutters. 15 round JACK drain inserted. The incision was then closed with 1 Vicryl to fascia 2-0 Vicryl subcutaneously and 4 Monocryl for final skin closure. Steri-Strips sterile dressing placed. Patient awakened taken to PACU in stable condition. Please note spinal cord monitoring was utilized at the procedure no changes noted. Lastly Treasure Snider was present at the entire surgeon while the patient positioning complex portion of the surgery and final skin closure. I attest to the content of the Intraoperative Record and any orders documented therein. Any exceptions are noted below.
--- NOTE | 2023-05-05 17:44 | Fluoroscopy Report ---
FL lumbar spine 2-3V CLINICAL HISTORY: L2-L4 DECOMPRESSION/ L4-S1 FUSION TECHNIQUE: 3 views were obtained with the C-arm in the OR with the above procedure. Total fluoroscopy time was 27.9 seconds. Radiation dose was 22.58 mGy. Comparison: Comparison is made to MRI lumbar spine 03/12/2023 FINDINGS/IMPRESSION: Intraoperative images were obtained of L2-L4 discectomy and fusion with L4-S1 anaya rdware removal. Please correlate with intraoperative fluoroscopy and operative report. ACT 112: Negative or not required by law. Electronically signed by: Sha Potter M.D. 05/05/2023 5:43 PM
--- NOTE | 2023-05-05 17:59 | Anesthesiology Progress Note ---
Date of Service May 05, 2023 Anesthesia Post Procedure Vital Signs Vital Signs: Temp Pulse Resp BP BP Pulse Ox O2 Del Method 05/05/23 17:37 97.2 F L 78 16 158/91 H 100 Oxymask 05/05/23 11:15 97.7 F 82 20 128/78 98 Room Air O2 Flow Rate 05/05/23 17:37 9 05/05/23 11:15 Pain Intensity Lower Back: Pain Intensity: 1 Transfer of Care Handoff Completed per policy Notes Mental Status: alert / awake / arousable and participated in evaluation Patient Amnestic to Procedure: Yes Nausea / Vomiting: adequately controlled Pain: adequately controlled Airway Patency, RR, SpO2: stable & adequate BP & HR: stable & adequate Hydration State: stable & adequate Anesthetic Complications: no major complications apparent and Pt Satisfied with anesthetic care
[2023-05-05] MEDS ORDERED: EPINEPHrine ADULT AUTO-INJECT 0.3 MG SYR IM PRN (18:32)
[2023-05-05] MEDS ORDERED: hydrOXYzine HCl 25 MG TAB PO PRN (18:32)
[2023-05-05] MEDS ORDERED: DO NOT ADMINISTER FLU VACCINE PRN (18:32)
[2023-05-05] MEDS ORDERED: bisacodyL 10 MG SUPP PR PRN (18:32)
[2023-05-05] MEDS ORDERED: ALUMINUM/MAGNESIUM SUSP 30 ML UDC PO PRN (18:32)
[2023-05-05] MEDS ORDERED: GABAPENTIN 100 MG CAP PO PRN (18:32)
[2023-05-05] MEDS ORDERED: ALBUTEROL 0.083% NEBU SOLN 3 ML VIAL INH PRN (18:32)
[2023-05-05] MEDS ORDERED: DO NOT ADMINISTER PNEUMOCOCCAL VACCINE PRN (18:32)
[2023-05-05] MEDS ORDERED: diphenhydrAMINE Capsule 25 MG CAP PO PRN (18:32)
[2023-05-05] MEDS ORDERED: MAGNESIUM HYDROXIDE SUSP 30 ML UDC PO PRN (18:32)
[2023-05-05] MEDS ORDERED: ONDANSETRON 4 MG OD TAB PO PRN (18:32)
[2023-05-05] MEDS ORDERED: FAMOTIDINE 20 MG TAB PO PRN (18:32)
[2023-05-05] MEDS ORDERED: LORazepam 2 MG/1 ML VIAL IV PRN (18:32)
[2023-05-05] MEDS ORDERED: NALOXONE HCL 0.4 MG/1 ML VIAL/CARP IV PRN (18:32)
[2023-05-05] MEDS ORDERED: SOD PHOSPHATE/SOD BIPHOSPHATE ENEMA 132 ML BTL PR PRN (18:32)
[2023-05-05] MEDS ORDERED: HYDROmorphone INJ 0.5 MG/0.5 ML SYR IV PRN (18:32)
[2023-05-05] MEDS ORDERED: METOCLOPRAMIDE HCL INJ 5 MG/ML 2 ML VIAL IV PRN (18:32)
[2023-05-05] MEDS ORDERED: ACETAMINOPHEN 1,000 MG/100 ML VIAL IV PRN (18:32)
[2023-05-05] MEDS ORDERED: PROMETHAZINE HCL 12.5 MG in SODIUM CHLORIDE 0.9% 50 ML IV PRN (18:32)
[2023-05-05] MEDS ORDERED: LORazepam 0.5 MG TAB PO PRN (18:32)
[2023-05-05] MEDS ORDERED: ALBUTEROL HFA 8 GM INHALER INH PRN (18:52)
[2023-05-05] MEDS: HYDROmorphone INJ 1 MG/ML SYRINGE IV PRN ×2 (18:57→22:58)
[2023-05-05] MEDS: LACTATED RINGER'S 1,000 ML IV SCH ×2 (18:58→23:01)
--- NOTE | 2023-05-05 19:00 | Hospitalist Consultation ---
Date of Consultation May 05, 2023 Assessment & Plan (1) S/P spinal surgery: (2) Neurogenic claudication due to lumbar spinal stenosis: This is a 72-year-old female with PMH of asthma, hypertension, postural dizziness with presyncope, history of aneurysm of thoracic aorta, dyslipidemia, hypothyroidism and other medical problems listed below who is POD#0 s/p removal of posterior instrumentation L4-5 L5-S1, exploration of fusion L4-L5 L5-S1 and revision decompression including bilateral medial facetectomies and foraminotomies L2-L3 L3-L4 by Dr. Valdivia. POD#0 s/p removal of posterior instrumentation L4-5 L5-S1, exploration of fusion L4-L5 L5-S1 and revision decompression including bilateral medial facetectomies and foraminotomies L2-L3 L3-L4 by Dr. Valdivia Per ortho for pain control, wound care, anticoagulation and activities Monitor H&H (EBL 100ml, pre-op hgb 14.6), continue incentive spirometry, PT/OT when appropriate Notified by RN of post-op R leg numbness and weakness and Dr. Valdivia aware- continue to monitor closely overnight (3) Hypothyroidism: Chronic, stable. Continue levothyroxine (4) Asthma: Chronic, well controlled per patient. Continue Spiriva, Symbicort, zafirlukast, albuterol inh PRN, Duonebs PRN SOB or wheezing (5) Thoracic aortic aneurysm: CT scan of the chest performed on January 29, 2022 revealed atherosclerosis and tortuosity of the thoracic aorta, mild (4.2 cm) ascending aorta, MAGO Galvez monitoring (6) Diastolic dysfunction: Resting echocardiography in December 2022 with preserved LV systolic function, mild valve issues only, diastolic dysfunction. Continue Toprol, losartan Plant to hold spironolactone in AM until volume status observed, AM labs return (7) Dyslipidemia: Chronic, stable. Continue rosuvastatin (8) Acne vulgaris: Continue doxycycline, minocycline DVT Ppx: SCDs PCP: Kapil Dispo: Per primary service Patient seen in collaboration with Dr. Wang. Please see addendum. Supervising Physician Co-Signing Physician Notes I have discussed the case with the collaborating MAGO. I agree with the above H&P. I have reviewed and confirmed the patients medical history, the findings on physical examination, and the patients diagnosis and treatment plan with Taye MERCEDES and agree with the information documented. In short, Ms Ching is a 72 year old woman with multiple stable comorbities for whom hospitalist co- management was consult to assist with medical management. Patient with post- operative numbness of R leg-service aware. Continue home medications with exception of spironolactone, with plans to resume upon return of am bmp and stable volume status. History of Present Illness Reason for Consultation: Postop medical management Attending Physician: Austin Valdivia DO History of Present Illness This is a 72-year-old female with PMH of asthma, hypertension, postural dizziness with presyncope, history of aneurysm of thoracic aorta, chronic diastolic, dyslipidemia, hypothyroidism and other medical problems listed below who is POD#0 s/p removal of posterior instrumentation L4-5 L5-S1, exploration of fusion L4-L5 L5-S1 and revision decompression including bilateral medial facetectomies and foraminotomies L2-L3 L3-L4 by Dr. Valdivia. Patient feeling well post-operatively. Does endorse numbness and decreased strength in RLE post- operatively. Pain is controlled with recent dose of IV dilaudid. No F/C, lightheadedness, CP, SOB, N/V, abdominal pain, dysuria, diarrhea or constipation. Does have history of post-op constipation. Allergies Allergy/AdvReac Type Severity Reaction Status Date / Time diphtheria, pertussis, Allergy Intermediate rash Verified 05/05/23 11:19 tetanus vacc isotretinoin Allergy Unknown MYALGIAS Verified 05/05/23 11:19 latex Allergy Unknown Rash Verified 05/05/23 11:19 Sulfa (Sulfonamide Allergy Unknown Rash Verified 05/05/23 11:19 Antibiotics) Home Medications Medication Instructions Recorded Confirmed Type albuterol sulfate 2.5 mg/3 mL 1.25 mg inhalation Q4H PRN 04/28/19 05/05/23 History (0.083 %) solution for nebulization Shortness Of Breath Or Wheezing doxycycline hyclate 50 mg capsule 50 mg PO DAILY PRN acne flare up 04/28/19 05/05/23 History epinephrine 0.3 mg/0.3 mL 0.3 mg IM Q10M PRN Allergic 04/28/19 05/05/23 History injection, auto-injector Reaction losartan 25 mg tablet 50 mg PO QAM 05/03/19 05/05/23 History albuterol sulfate 90 mcg/actuation 2 inh inhalation Q4H PRN shortness 06/18/20 05/05/23 Rx breath activated powder inhaler of breath or wheezing #1 ea budesonide-formoterol HFA 80 2 inh inhalation BID 02/26/22 05/05/23 History mcg-4.5 mcg/actuation aerosol inhaler (Symbicort) tiotropium bromide 1.25 2 puff inhalation DAILY 02/26/22 05/05/23 History mcg/actuation mist for inhalation (Spiriva Respimat) ipratropium bromide 21 mcg (0.03 See Rx Instructions .Route 06/09/22 05/05/23 Rx %) nasal spray .COMPLEX #30 mL rosuvastatin 5 mg tablet 25 mg PO QAM 06/09/22 05/05/23 History spironolactone 25 mg tablet 50 mg PO QAM 06/09/22 05/05/23 History zafirlukast 20 mg tablet See Rx Instructions .Route 06/09/22 05/05/23 Rx .COMPLEX #60 tabs aspirin 81 mg capsule 81 mg PO QAM 04/01/23 05/05/23 History azelastine 137 mcg (0.1 %) nasal 1 spray intranasal QAM 04/01/23 05/05/23 History spray aerosol cetirizine 5 mg tablet 5 mg PO DAILY 04/01/23 05/05/23 History fluticasone propionate 50 1 spray intranasal BID 04/01/23 05/05/23 History mcg/actuation nasal spray,suspension levothyroxine 75 mcg tablet 75 mcg PO QAM 04/01/23 05/05/23 History gabapentin 300 mg capsule 300 mg PO DAILY PRN Pain 05/05/23 05/05/23 History metoprolol succinate 25 mg 25 mg PO DAILY 05/05/23 05/05/23 History tablet,extended release 24 hr minocycline 100 mg capsule 100 mg PO BID 05/05/23 05/05/23 History Patient History Medical History (Updated 05/05/23 @ 19:59 by Elza Kothari PA-C) Acne vulgaris occasional flare up Asthma uses inhalers daily Chronic sinusitis Diastolic dysfunction Diverticulitis last episode > 1 month ago Dyslipidemia Dysphagia causing pulmonary aspiration with swallowing GERD (gastroesophageal reflux disease) stable per pt History of basal cell carcinoma back s/p excision > 30 yrs ago HTN (hypertension) controlled, stable per pt Hyperlipidemia Hypothyroidism Thoracic aortic aneurysm 4.3 cm, monitoring - follows w/ [facility] Samir Galvez Surgical History (Updated 05/05/23 @ 19:03 by Elza Kothari PA-C) H/O dilation and curettage H/O Spinal surgery History of hysteroscopy History of tubal ligation Hx of appendectomy Hx of cardiac catheterization 11/2022- no stents - done at [facility] [place], [place] Hx of colonoscopy Hx of resection of large bowel sigmoid, diverticulitis Hx of tonsillectomy S/P cholecystectomy Family History Mother Alzheimer disease Father Atrial fibrillation Denies family history of Ovarian cancer Breast cancer Colorectal cancer Social History Smoking Status: Never smoker Second Hand Exposure: No; Do You Dip or Chew Tobacco: No; Hx Alcohol Use: No Hx Substance Use: No Preferred Language: Macedonian Communication Ability: Effective Haircutter Required: No Beliefs That Will Affect Care: None marital status: Current Living Situation: Spouse current occupational status: retired Feels Safe at Home: Yes Safety Concerns: Feels Safe At This Time Assistive Devices: None Review of Systems Review of Systems: At least ten systems reviewed and negative except as noted in the HPI. Physical Exam Physical Exam: General Appearance: WD/WN, vitals as above, NAD, lying in bed, pleasant, conversing easily Head: normocephalic, atraumatic Eyes: normal inspection, PERRL, conjunctivae normal, anicteric sclerae ENT: external ear and nose normal, oropharynx normal Neck: normal visual inspection, trachea midline, no thyromegaly Respiratory: normal respiratory effort, lungs clear to auscultation, no wheeze, rales, rhonchi. No accessory muscle use Cardiovascular: regular rate, rhythm, no murmur, normal peripheral pulses, no BLE edema. Vessels: no JVD Chest: normal inspection of chest Abdomen/GI: normal bowel sounds, soft, nontender, no hepatosplenomegaly : Estevez Extremities/Musculoskeletal: +Spinal dressing c/d/i. JACK drain visualized. No cyanosis or clubbing, LLE 5/5 strength against resistance, RLE 3+/5 Neurologic: PERRL, EOMI, accommodation nl, no face palsy, no dysarthria, CN's II-XI intact bilaterally and moves all extremities Psychiatric: A+Ox3, euthymic affect Skin: no rashes, normal color, warm/dry Results & Data Results & Data Vital Signs (Past 12 Hours) Vital Signs Temp Pulse Resp BP BP Pulse Ox O2 Del Method 05/05/23 18:15 36.3 C L 75 18 128/96 99 Room Air 05/05/23 18:05 77 20 141/89 H 100 Room Air 05/05/23 17:55 79 13 146/95 H 100 Oxymask 05/05/23 17:45 78 13 138/88 100 Oxymask 05/05/23 17:37 36.2 C L 78 16 158/91 H 100 Oxymask 05/05/23 11:15 36.5 C 82 20 128/78 98 Room Air O2 Flow Rate 05/05/23 18:15 05/05/23 18:05 05/05/23 17:55 5 05/05/23 17:45 9 05/05/23 17:37 9 05/05/23 11:15 Diagnostic Findings Lumbar Spine X-Ray 05/05/23 12:25 FL lumbar spine 2-3V CLINICAL HISTORY: L2-L4 DECOMPRESSION/ L4-S1 FUSION TECHNIQUE: 3 views were obtained with the C-arm in the OR with the above procedure. Total fluoroscopy time was 27.9 seconds. Radiation dose was 22.58 mGy. Comparison: Comparison is made to MRI lumbar spine 03/12/2023 FINDINGS/IMPRESSION: Intraoperative images were obtained of L2-L4 discectomy and fusion with L4-S1 hardware removal. Please correlate with intraoperative fluoroscopy and operative report. ACT 112: Negative or not required by law. Electronically signed by: Sha Potter M.D. 05/05/2023 5:43 PM
[2023-05-05] MEDS: FLUTICASONE PROPIONATE NA SPR 16 GM BTL SCH (21:23)
[2023-05-05] MEDS: DOCUSATE SODIUM/SENNA 50/8.6MG TAB PO SCH (21:23)
[2023-05-05] MEDS: MINOCYCLINE HCL 50 MG CAP PO SCH (21:23)
[2023-05-05] MEDS: oxyCODONE HCL IR 5 MG TAB (IMMEDIATE RELEASE) PO PRN (21:31)
[2023-05-05] MEDS: ceFAZolin 2000MG 2,000 MG/15 ML SYR IV SCH (22:59)
[2023-05-06] MEDS: oxyCODONE HCL IR 5 MG TAB (IMMEDIATE RELEASE) PO PRN ×4 (01:37→22:56)
[2023-05-06] MEDS: POLYETHYLENE (MIRALAX) 17 GM PACK PO SCH ×4 (06:11→22:56)
[2023-05-06] MEDS: LEVOTHYROXINE SODIUM 75 MCG TABLET PO SCH (06:11)
[2023-05-06] MEDS: ceFAZolin 2000MG 2,000 MG/15 ML SYR IV SCH (06:11)
[2023-05-06] MEDS: HYDROmorphone INJ 1 MG/ML SYRINGE IV PRN (06:19)
[2023-05-06 06:26] LABS: Basophils # (auto) 0.01 K/uL (0-0.2); Basophils % (auto) 0.1 %; Hematocrit (blood only) 32.6 % (37.0-47.0); Hemoglobin 11.1 g/dl (12.0-16.0); Immature Granulocytes # (auto) 0.06 K/uL (0.01-0.20); Immature Granulocytes % (auto) 0.5 %; Lymphocytes % (auto) 10.4 %; Mean Corpuscular Hemoglobin 30.3 pg (25.0-34.0); Mean Corpuscular Volume 89.1 fL (80.0-100.0); Mean Platelet Volume 10.6 fL (9.4-12.4); Monocytes # (auto) 0.81 K/uL (0.11-0.59); Neutrophils # (auto) 9.42 K/uL (1.40-6.50); Platelet Count 171 K/uL (130-400); RDW Coefficient of Variation 13.9 % (11.5-14.5); RDW Standard Deviation 45.5 fL (36.4-46.3); Red Blood Count 3.66 M/uL (4.20-5.40)
[2023-05-06] MEDS: ONDANSETRON INJ 2 MG/ML 2 ML VIAL IV PRN (06:31)
[2023-05-06 06:48] LABS: BUN Creatinine Ratio 18.9 (10-20); Calcium 8.2 mg/dl (8.6-10.3); Creatinine Clr Calc Pharmacy 87.5 ml/min; Est GFR (African American) 110.7 ml/min; Est GFR (Non-African American) 95.5 ml/min; Potassium 4.2 mmol/L (3.5-5.1)
[2023-05-06] MEDS: dexAMETHasone 6 MG in SYRINGE 0 ML IV SCH (07:42)
[2023-05-06] MEDS: UMECLIDINIUM BROMIDE 62.5MCG/BLISTER 7 PUFFS/INHALER INH SCH (08:27)
[2023-05-06] MEDS: METOPROLOL SUCC 25MG EXT REL TAB PO SCH (08:27)
[2023-05-06] MEDS: MINOCYCLINE HCL 50 MG CAP PO SCH ×2 (08:27→19:54)
[2023-05-06] MEDS: FLUTICASONE/VILANTEROL 100/25MCG 14 PUFFS/INHALER INH SCH (08:27)
[2023-05-06] MEDS: ASPIRIN 81 MG ECTAB PO SCH (08:28)
[2023-05-06] MEDS: ROSUVASTATIN CALCIUM 20 MG TAB PO SCH (08:29)
[2023-05-06] MEDS: LOSARTAN POTASSIUM 50 MG TAB PO SCH (08:29)
[2023-05-06] MEDS: CETIRIZINE HCL 10 MG TABLET PO SCH (08:29)
[2023-05-06] MEDS: FLUTICASONE PROPIONATE NA SPR 16 GM BTL SCH ×2 (08:30→19:54)
--- NOTE | 2023-05-06 08:32 | Orthopedic Progress Note ---
Date of Service May 06, 2023 Assessment & Plan (1) Neurogenic claudication due to lumbar spinal stenosis: Plan: Francisca is postoperative day 1 status post hard removal L4-S1, durotomy repair, decompression L2-4 with instrumentation L2-S1. No evidence of a spinal leak. We will therefore get her up with physical therapy today. Maintain JACK drain for now. Work on nausea control. DVT prophylaxis is in the form of teds and SCDs. Admission and Anticipated Discharge Date Admission Date: May 05, 2023 Greta Burnett is postoperative day 1 status post hard removal of L4-S1, durotomy repair, decompression L2-4 with instrumented fusion L2-S1. She notes some nausea overnight. No headaches. Notes right lower extremity weakness and heaviness. Also numbness. She states she has had the weakness and the numbness preoperatively. JACK drain output last shift was 160 cc. H&H this morning are 11.1 and 32.6 respectively. Review of Systems Review of Systems: All systems reviewed & are unremarkable except as noted in HPI & below Physical Exam Physical Exam: She is lying in bed in no acute distress Alert and oriented x3 4/5 right EHL dorsiflexion and plantarflexion compared to the left which strength is intact Lumbar dressing is clean dry intact with functioning JACK drain with bloody drainage. Results & Data Vital Signs (Past 12 Hours) Vital Signs Temp Pulse Pulse Resp BP Pulse Ox O2 Del Method 05/06/23 07:30 36.9 C 73 16 116/70 96 Room Air 05/06/23 03:09 36.6 C 77 18 100/59 L 97 Room Air 05/05/23 21:30 36.6 C 72 20 119/71 100 Room Air 05/05/23 22:39 36.5 C 76 18 119/78 97 Room Air 05/05/23 20:33 36.5 C 72 18 124/70 97 Room Air
[2023-05-06] MEDS ORDERED: METOPROLOL SUCC 25MG EXT REL TAB PO SCH (09:00)
[2023-05-06] MEDS ORDERED: AZELASTINE HCL 0.1% NASAL 200 SPRAYS/27,400 MCG BTL SCH (09:00)
[2023-05-06] MEDS ORDERED: LOSARTAN POTASSIUM 25 MG TAB PO SCH ×2 (09:00)
[2023-05-06] MEDS: ACETAMINOPHEN 500 MG TAB PO PRN (11:08)
[2023-05-06] MEDS: traMADol HCL 50 MG TABLET PO PRN (14:39)
--- NOTE | 2023-05-06 15:06 | Hospitalist Progress Note ---
Date of Service May 06, 2023 Assessment & Plan (1) S/P spinal surgery: (2) Neurogenic claudication due to lumbar spinal stenosis: Plan: This is a 72-year-old female with PMH of asthma, hypertension, postural dizziness with presyncope, history of aneurysm of thoracic aorta, dyslipidemia, hypothyroidism and other medical problems listed below who is POD#0 s/p removal of posterior instrumentation L4-5 L5-S1, exploration of fusion L4-L5 L5-S1 and revision decompression including bilateral medial facetectomies and foraminotomies L2-L3 L3-L4 by Dr. Valdivia. Acute Blood loss anemia: likely 2/2 victor hugo-op blood loss, complicated by hemodilution. POD#1 s/p removal of posterior instrumentation L4-5 L5-S1, exploration of fusion L4-L5 L5-S1 and revision decompression including bilateral medial facetectomies and foraminotomies L2-L3 L3-L4 by Dr. Valdivia Per ortho for pain control, wound care, anticoagulation and activities Monitor H&H (EBL 100ml, pre-op hgb 14.6), continue incentive spirometry, PT/OT when appropriate. Post op Hb 11.1. RLE weakness getting better per Pt. (3) Hypothyroidism: Plan: Chronic, stable. Continue levothyroxine (4) Asthma: Plan: Chronic, well controlled per patient. Continue Spiriva, Symbicort, zafirlukast, albuterol inh PRN, Duonebs PRN SOB or wheezing (5) Thoracic aortic aneurysm: Plan: CT scan of the chest performed on January 29, 2022 revealed atherosclerosis and tortuosity of the thoracic aorta, mild (4.2 cm) ascending aorta, PA-C Lenny monitoring (6) Diastolic dysfunction: Plan: Resting echocardiography in December 2022 with preserved LV systolic function, mild valve issues only, diastolic dysfunction. Continue Toprol, losartan Plant to hold spironolactone in AM until volume status observed, AM labs return (7) Dyslipidemia: Plan: Chronic, stable. Continue rosuvastatin (8) Acne vulgaris: Plan: Continue doxycycline, minocycline DVT Ppx: SCDs PCP: Kapil Dispo: Per primary service Admission and Anticipated Discharge Date Admission Date: May 05, 2023 Subjective Patient seen and examined at bedside as a follow-up of medical management for status post lumbar spine surgery. Patient was sitting up in chair, on room air, NAD, reports improvement in her BLE radicular pain. Patient does report RLE weakness but also reports improving strength. Reports eating okay and moving gas, has not moved bowel after surgery. Operative site pain bearable with pain medications. Physical Exam Physical Exam: GENERAL: Alert and oriented x3. NAD, on RA. HEENT: No pallor, no icterus. Pupils equal, round and reactive to light. Oral mucosa moist. NECK: No JVD, no neck masses. HEART: S1 and S2 heard. Regular rate and rhythm. No murmur, no gallop. RESPIRATORY SYSTEM: Normal AP diameter. No accessory muscle use. No wheezing, no crackles. ABDOMEN: Soft, bowel sounds present, nontender, no distention. CENTRAL NERVOUS SYSTEM: No facial droop. Speech is clear. Obeys simple commands. Moves extremities. EXTREMITIES: No edema, no erythema seen. Low back with clean dressing without soakage, JACK drain with moderate serosanguineous collection noted. Results & Data Results & Data Vital Signs (Past 12 Hours) Vital Signs Temp Pulse Resp BP Pulse Ox O2 Del Method 05/06/23 10:59 36.7 C 65 16 128/77 99 Room Air 05/06/23 07:30 36.9 C 73 16 116/70 96 Room Air 05/06/23 03:09 36.6 C 77 18 100/59 L 97 Room Air
[2023-05-06] MEDS ORDERED: SUMAtriptan succinate 25 MG TAB PO ONE (17:15)
[2023-05-06] MEDS: DOCUSATE SODIUM/SENNA 50/8.6MG TAB PO SCH (19:53)
[2023-05-07] MEDS: LEVOTHYROXINE SODIUM 75 MCG TABLET PO SCH (06:42)
[2023-05-07] MEDS: POLYETHYLENE (MIRALAX) 17 GM PACK PO SCH ×4 (06:42→21:44)
[2023-05-07] MEDS: ACETAMINOPHEN 500 MG TAB PO PRN (06:44)
[2023-05-07 07:36] LABS: Hematocrit (blood only) 33.5 % (37.0-47.0); Hemoglobin 11.6 g/dl (12.0-16.0)
[2023-05-07] MEDS: METOPROLOL SUCC 25MG EXT REL TAB PO SCH (08:20)
[2023-05-07] MEDS: LOSARTAN POTASSIUM 50 MG TAB PO SCH (08:20)
[2023-05-07] MEDS: FLUTICASONE/VILANTEROL 100/25MCG 14 PUFFS/INHALER INH SCH (08:23)
[2023-05-07] MEDS: FLUTICASONE PROPIONATE NA SPR 16 GM BTL SCH ×2 (08:23→19:31)
[2023-05-07] MEDS: UMECLIDINIUM BROMIDE 62.5MCG/BLISTER 7 PUFFS/INHALER INH SCH (08:23)
[2023-05-07] MEDS: dexAMETHasone 6 MG in SYRINGE 0 ML IV SCH (08:24)
[2023-05-07] MEDS: CETIRIZINE HCL 10 MG TABLET PO SCH (08:24)
[2023-05-07] MEDS: ASPIRIN 81 MG ECTAB PO SCH (08:25)
[2023-05-07] MEDS: ROSUVASTATIN CALCIUM 20 MG TAB PO SCH (08:25)
[2023-05-07] MEDS: MINOCYCLINE HCL 50 MG CAP PO SCH ×2 (08:25→19:30)
--- NOTE | 2023-05-07 10:26 | Orthopedic Progress Note ---
Date of Service May 07, 2023 Assessment & Plan (1) Neurogenic claudication due to lumbar spinal stenosis: Plan: At this time we will continue physical therapy and plan for rehab as soon as tomorrow. She will require hospital bed at home in light of her strength deficit. Her condition requires positioning of the body in ways not feasible in an ordinary home bed. This would assist in relieving her pain and regaining her overall independence and function. Admission and Anticipated Discharge Date Admission Date: May 05, 2023 Subjective Back pain controlled struggling with some right leg weakness Physical Exam Physical Exam: On exam she is ambulating with a walker. We did got her back to bed. Lying in bed she exhibits a 3+/5 right quadriceps. Clinically is grossly intact. Sensory somewhat diminished. Results & Data Vital Signs (Past 12 Hours) Vital Signs Temp Pulse Resp BP BP Pulse Ox O2 Del Method 05/07/23 08:20 99/64 L 05/07/23 09:06 36.6 C 67 16 123/77 98 Room Air 05/07/23 06:47 36.8 C 66 17 113/67 96 Room Air
[2023-05-07] MEDS ORDERED: SODIUM CHLORIDE 0.9% 1000ML 1,000 ML IV SCH (11:45)
--- NOTE | 2023-05-07 14:35 | Hospitalist Progress Note ---
Date of Service May 07, 2023 Assessment & Plan (1) S/P spinal surgery: (2) Neurogenic claudication due to lumbar spinal stenosis: Plan: This is a 72-year-old female with PMH of asthma, hypertension, postural dizziness with presyncope, history of aneurysm of thoracic aorta, dyslipidemia, hypothyroidism and other medical problems listed below who is POD#2 s/p removal of posterior instrumentation L4-5 L5-S1, exploration of fusion L4-L5 L5-S1 and revision decompression including bilateral medial facetectomies and foraminotomies L2-L3 L3-L4 by Dr. Valdivia. POD#2 s/p removal of posterior instrumentation L4-5 L5-S1, exploration of fusion L4-L5 L5-S1 and revision decompression including bilateral medial facetectomies and foraminotomies L2-L3 L3-L4 by Dr. Valdivia Per ortho for pain control, wound care, anticoagulation and activities Continue incentive spirometry, PT/OT when appropriate. Post op Hb 11.1. RLE weakness getting better per patient Acute Blood loss anemia: likely 2/2 victor hugo-op blood loss, complicated by hemodilution EBL 100ml, pre-op hgb 14.6 Hgb 11.6 today (from 11.1 yesterday) BP stable, giving 1 L maintenance fluids due to GI losses, dizziness as above (3) Hypothyroidism: Plan: Chronic, stable. Continue levothyroxine (4) Asthma: Plan: Chronic, well controlled per patient. Continue Spiriva, Symbicort, zafirlukast, albuterol inh PRN, Duonebs PRN SOB or wheezing (5) Thoracic aortic aneurysm: Plan: CT scan of the chest performed on January 29, 2022 revealed atherosclerosis and tortuosity of the thoracic aorta, mild (4.2 cm) ascending aorta, PA-C Lenny monitoring (6) Diastolic dysfunction: Plan: Resting echocardiography in December 2022 with preserved LV systolic function, mild valve issues only, diastolic dysfunction. Continue Toprol, losartan Plant to hold spironolactone in AM until volume status observed, AM labs return (7) Dyslipidemia: Plan: Chronic, stable. Continue rosuvastatin (8) Acne vulgaris: Plan: Continue doxycycline, minocycline DVT Ppx: SCDs PCP: Kapil Dispo: Per primary service Admission and Anticipated Discharge Date Admission Date: May 05, 2023 Supervising Physician Co-Signing Physician Notes Patient seen and examined at bedside as a follow-up of medical management for status post spinal surgery. Patient reports having loose stool after multiple doses of stool softener. Stop the stool softener. IV fluid 1 L. Pedialyte solution by bedside, RN communicated Patient reports improving RLE weakness.. Patient on room air, heart/lung/abdomen examination fairly WNL. I have seen and examined the patient and have discussed the case with the provider above. I agree with the assessment and plan as stated. Subjective Seen and examined in 309. Having loose stool today as her first post-op bowel movement. Had some associated dizziness with standing. No pre-syncope, visual changes or palpitations. No headache or fall. No F/C, CP, SOB, N/V, abdominal pain, dysuria. Back pain improved and RLE stronger. Still with paresthesias and neuropathic pain in RLE, which she discussed with Dr. Valdivia this morning. Review of Systems Review of Systems: At least ten systems reviewed and negative except as noted in the HPI. Physical Exam Physical Exam: Gen: WD/WN, NAD, lying down, A&Ox3 HEENT: Normocephalic, atraumatic, conjunctivae moist, sclerae anicteric, mucous membranes moist Lung: Clear to Auscultation bilaterally, no wheezes/rales/rhonchi Heart: Regular rate, regular rhythm, no murmurs, rubs, or gallops Abdomen: Soft, NT, ND +BS x 4 Extremities: +Spinal dressing c/d/i. JACK drain with moderate serosanguineous drainage. No edema. RLE 3+-4/5 strength Skin: Warm, no rash Results & Data Results & Data Vital Signs (Past 12 Hours) Vital Signs Temp Pulse Resp BP BP Pulse Ox O2 Del Method 05/07/23 08:20 99/64 L 05/07/23 09:06 36.6 C 67 16 123/77 98 Room Air 05/07/23 06:47 36.8 C 66 17 113/67 96 Room Air Laboratory Results Short CBC 05/07/23 Range/Units 07:11 Hgb 11.6 L (12.0-16.0) g/dl Hct 33.5 L (37.0-47.0) % Diagnostic Findings Lumbar Spine X-Ray 05/05/23 12:25 FL lumbar spine 2-3V CLINICAL HISTORY: L2-L4 DECOMPRESSION/ L4-S1 FUSION TECHNIQUE: 3 views were obtained with the C-arm in the OR with the above procedure. Total fluoroscopy time was 27.9 seconds. Radiation dose was 22.58 mGy. Comparison: Comparison is made to MRI lumbar spine 03/12/2023 FINDINGS/IMPRESSION: Intraoperative images were obtained of L2-L4 discectomy and fusion with L4-S1 hardware removal. Please correlate with intraoperative fluoroscopy and operative report. ACT 112: Negative or not required by law. Electronically signed by: Sha Potter M.D. 05/05/2023 5:43 PM
[2023-05-07] MEDS: oxyCODONE HCL IR 5 MG TAB (IMMEDIATE RELEASE) PO PRN (15:01)
[2023-05-07 16:14] LABS: BUN Creatinine Ratio 23.3 (10-20); Calcium 8.6 mg/dl (8.6-10.3); Creatinine Clr Calc Pharmacy 77.2 ml/min; Est GFR (African American) 106.3 ml/min; Est GFR (Non-African American) 91.7 ml/min; Potassium 3.8 mmol/L (3.5-5.1)
[2023-05-07] MEDS: DOCUSATE SODIUM/SENNA 50/8.6MG TAB PO SCH (19:28)
[2023-05-07] MEDS: ZAFIRLUKAST 20MG: NON-FORMULARY PATIENT'S OWN MED PO SCH (21:43)
[2023-05-07] MEDS: LOPERAMIDE HCL 2 MG CAP PO PRN (21:43)
[2023-05-08] MEDS: POLYETHYLENE (MIRALAX) 17 GM PACK PO SCH ×2 (01:08→11:20)
[2023-05-08] MEDS: oxyCODONE HCL IR 5 MG TAB (IMMEDIATE RELEASE) PO PRN ×2 (02:32→13:38)
[2023-05-08] MEDS: LEVOTHYROXINE SODIUM 75 MCG TABLET PO SCH (06:07)
[2023-05-08] MEDS: ZAFIRLUKAST 20MG: NON-FORMULARY PATIENT'S OWN MED PO SCH ×2 (06:08→20:39)
[2023-05-08 07:24] LABS: BUN Creatinine Ratio 20.3 (10-20); Calcium 8.6 mg/dl (8.6-10.3); Creatinine Clr Calc Pharmacy 78.6 ml/min; Est GFR (African American) 106.9 ml/min; Est GFR (Non-African American) 92.2 ml/min; Potassium 3.6 mmol/L (3.5-5.1)
[2023-05-08] MEDS: ASPIRIN 81 MG ECTAB PO SCH (08:17)
[2023-05-08] MEDS: CETIRIZINE HCL 10 MG TABLET PO SCH (08:18)
[2023-05-08] MEDS: ROSUVASTATIN CALCIUM 20 MG TAB PO SCH (08:18)
[2023-05-08] MEDS: LOSARTAN POTASSIUM 50 MG TAB PO SCH (08:18)
[2023-05-08] MEDS: METOPROLOL SUCC 25MG EXT REL TAB PO SCH (08:18)
[2023-05-08] MEDS: MINOCYCLINE HCL 50 MG CAP PO SCH ×2 (08:18→20:38)
[2023-05-08] MEDS: FLUTICASONE PROPIONATE NA SPR 16 GM BTL SCH ×2 (08:19→20:39)
[2023-05-08] MEDS: dexAMETHasone 6 MG in SYRINGE 0 ML IV SCH (08:19)
[2023-05-08] MEDS: FLUTICASONE/VILANTEROL 100/25MCG 14 PUFFS/INHALER INH SCH (08:20)
[2023-05-08] MEDS: UMECLIDINIUM BROMIDE 62.5MCG/BLISTER 7 PUFFS/INHALER INH SCH (08:20)
--- NOTE | 2023-05-08 11:44 | Orthopedic Progress Note ---
Date of Service May 08, 2023 Assessment & Plan (1) Neurogenic claudication due to lumbar spinal stenosis: Plan: At this time she is still struggling with hypotension. We will continue with in-house physical therapy and Occupational Therapy. She is requested home physical therapy upon discharge and this would be later this week or Thursday at best. Admission and Anticipated Discharge Date Admission Date: May 05, 2023 Subjective Patient still struggling with some lightheadedness with prolonged standing. She is struggling with her colitis and is unable to tolerate foods without having diarrhea. Her right leg symptoms are stable. Physical Exam Physical Exam: On exam she does appear comfortable. She is in bed at this time. She again has a 3+ to 4/5 right quadriceps. Sensory is somewhat diminished to the anterior thigh compared to the other extremities. Results & Data Vital Signs (Past 12 Hours) Vital Signs Temp Pulse Resp BP Pulse Ox O2 Del Method 05/08/23 08:06 37 C 69 16 134/81 97 Room Air
--- NOTE | 2023-05-08 12:01 | Hospitalist Progress Note ---
Date of Service May 08, 2023 Assessment & Plan (1) S/P spinal surgery: (2) Neurogenic claudication due to lumbar spinal stenosis: Plan: This is a 72-year-old female with PMH of asthma, hypertension, postural dizziness with presyncope, history of aneurysm of thoracic aorta, dyslipidemia, hypothyroidism and other medical problems listed below who is POD#3 s/p removal of posterior instrumentation L4-5 L5-S1, exploration of fusion L4-L5 L5-S1 and revision decompression including bilateral medial facetectomies and foraminotomies L2-L3 L3-L4 by Dr. Valdivia. POD#3 s/p removal of posterior instrumentation L4-5 L5-S1, exploration of fusion L4-L5 L5-S1 and revision decompression including bilateral medial facetectomies and foraminotomies L2-L3 L3-L4 by Dr. Valdivia Per ortho for pain control, wound care, anticoagulation and activities Continue incentive spirometry, PT/OT when appropriate. Post op Hgb stable at 11.1. RLE weakness improved since surgery but still weak with decreased sensation compared to LLE Requires changes in position in ways not feasible in an ordinary bed in order to alleviate pain after back surgery. Pt also requires frequent changes in body position Acute Blood loss anemia: likely 2/2 victor hugo-op blood loss, complicated by hemodil ution EBL 100ml, pre-op hgb 14.6 Hgb 11.6 today (from 11.1 yesterday) BP stable, giving 1 L maintenance fluids due to GI losses, dizziness as above but vital signs have remained stable Colitis Diarrhea following surgery and bowel regimen. Has h/o colitis Electrolytes WNL, encourage continued gatorade, low fiber diet (3) Hypothyroidism: Plan: Chronic, stable. Continue levothyroxine (4) Asthma: Plan: Chronic, well controlled per patient. Continue Spiriva, Symbicort, zafirlukast, albuterol inh PRN, Duonebs PRN SOB or wheezing (5) Thoracic aortic aneurysm: Plan: CT scan of the chest performed on January 29, 2022 revealed atherosclerosis and tortuosity of the thoracic aorta, mild (4.2 cm) ascending aorta, PA-C Lenny monitoring (6) Diastolic dysfunction: Plan: Resting echocardiography in December 2022 with preserved LV systolic function, mild valve issues only, diastolic dysfunction. Continue Toprol, losartan Plant to hold spironolactone in AM until volume status observed, AM labs return (7) Dyslipidemia: Plan: Chronic, stable. Continue rosuvastatin (8) Acne vulgaris: Plan: Continue doxycycline, minocycline DVT Ppx: SCDs PCP: Kapil Dispo: Per primary service Admission and Anticipated Discharge Date Admission Date: May 05, 2023 Supervising Physician Co-Signing Physician Notes Patient seen and examined at bedside as a follow-up of medical management for status post spinal surgery. Patient reports having loose stool after multiple doses of stool softener/has h/o IBS. Stop the stool softener. IV fluid 1 L. Pedialyte solution by bedside, RN communicated. Pt would uses colestipol at home for this diarrhea with good results, will use here. Patient reports improving RLE weakness. Patient on room air, heart/lung/abdomen examination fairly WNL. I have seen and examined the patient and have discussed the case with the provider above. I agree with the assessment and plan as stated. Subjective Seen and examined in 309. Continues having loose stool today after bowel regimen, h/o colitis. Had some associated dizziness with standing. No pre- syncope, visual changes or palpitations. Vitals stable. No headache or fall. No F/C, CP, SOB, N/V, abdominal pain, dysuria. Back pain improved and RLE stronger. Still with paresthesias and neuropathic pain in RLE. Review of Systems Review of Systems: At least ten systems reviewed and negative except as noted in the HPI. Physical Exam Physical Exam: Gen: WD/WN, NAD, sitting on side of bed, A&Ox3 HEENT: Normocephalic, atraumatic, conjunctivae moist, sclerae anicteric, mucous membranes moist Lung: Clear to Auscultation bilaterally, no wheezes/rales/rhonchi Heart: Regular rate, regular rhythm, no murmurs, rubs, or gallops Abdomen: Soft, NT, ND +BS x 4 Extremities: +Spinal dressing c/d/i. JACK drain with moderate serosanguineous drainage. No edema. RLE 3+/5 strength Skin: Warm, no rash Results & Data Results & Data Vital Signs (Past 12 Hours) Vital Signs Temp Pulse Resp BP Pulse Ox O2 Del Method 05/08/23 08:06 37 C 69 16 134/81 97 Room Air Laboratory Results [facility] 05/07/23 05/08/23 15:22 06:19 Sodium 138 140 Potassium 3.8 3.6 Chloride 106 108 H Carbon Dioxide 22 26 BUN 14 12 Creatinine 0.60 0.59 L Glucose 181 H 103 H Calcium 8.6 8.6 Diagnostic Findings Lumbar Spine X-Ray 05/05/23 12:25 FL lumbar spine 2-3V CLINICAL HISTORY: L2-L4 DECOMPRESSION/ L4-S1 FUSION TECHNIQUE: 3 views were obtained with the C-arm in the OR with the above procedure. Total fluoroscopy time was 27.9 seconds. Radiation dose was 22.58 mGy. Comparison: Comparison is made to MRI lumbar spine 03/12/2023 FINDINGS/IMPRESSION: Intraoperative images were obtained of L2-L4 discectomy and fusion with L4-S1 hardware removal. Please correlate with intraoperative fluoroscopy and operative report. ACT 112: Negative or not required by law. Electronically signed by: Sha Potter M.D. 05/05/2023 5:43 PM
[2023-05-08] MEDS: COLESTIPOL HCL 1 GM TAB PO PRN (21:45)
[2023-05-09] MEDS: oxyCODONE HCL IR 5 MG TAB (IMMEDIATE RELEASE) PO PRN ×3 (04:54→20:03)
[2023-05-09] MEDS: LEVOTHYROXINE SODIUM 75 MCG TABLET PO SCH (06:15)
[2023-05-09] MEDS: ZAFIRLUKAST 20MG: NON-FORMULARY PATIENT'S OWN MED PO SCH ×2 (07:06→21:38)
[2023-05-09 07:21] LABS: Hematocrit (blood only) 32.4 % (37.0-47.0); Hemoglobin 11.2 g/dl (12.0-16.0); Mean Corpuscular Hemoglobin 30.6 pg (25.0-34.0); Mean Corpuscular Hgb Conc 34.6 g/dL (32.0-36.0); Mean Corpuscular Volume 88.5 fL (80.0-100.0); Mean Platelet Volume 10.3 fL (9.4-12.4); Nucleated RBC # (auto) 0.02 K/uL (0.00-0.12); Nucleated RBC % (auto) 0.2 %; Platelet Count 188 K/uL (130-400); RDW Coefficient of Variation 13.9 % (11.5-14.5); Red Blood Count 3.66 M/uL (4.20-5.40); White Blood Count 11.39 K/ul (4.8-10.8)
[2023-05-09 08:11] LABS: BUN Creatinine Ratio 20.3 (10-20); Calcium 8.6 mg/dl (8.6-10.3); Creatinine Clr Calc Pharmacy 78.6 ml/min; Est GFR (African American) 106.9 ml/min; Est GFR (Non-African American) 92.2 ml/min; Potassium 3.5 mmol/L (3.5-5.1)
[2023-05-09] MEDS: COLESTIPOL HCL 1 GM TAB PO PRN (08:45)
[2023-05-09] MEDS: MINOCYCLINE HCL 50 MG CAP PO SCH ×2 (08:46→21:38)
[2023-05-09] MEDS: METOPROLOL SUCC 25MG EXT REL TAB PO SCH (08:46)
[2023-05-09] MEDS: LOSARTAN POTASSIUM 50 MG TAB PO SCH (08:46)
[2023-05-09] MEDS: ROSUVASTATIN CALCIUM 20 MG TAB PO SCH (08:46)
[2023-05-09] MEDS: CETIRIZINE HCL 10 MG TABLET PO SCH (08:46)
[2023-05-09] MEDS: ASPIRIN 81 MG ECTAB PO SCH (08:46)
[2023-05-09] MEDS: FLUTICASONE/VILANTEROL 100/25MCG 14 PUFFS/INHALER INH SCH (08:48)
[2023-05-09] MEDS: FLUTICASONE PROPIONATE NA SPR 16 GM BTL SCH ×2 (08:48→21:38)
[2023-05-09] MEDS: UMECLIDINIUM BROMIDE 62.5MCG/BLISTER 7 PUFFS/INHALER INH SCH (08:48)
--- NOTE | 2023-05-09 10:50 | Orthopedic Progress Note ---
Date of Service May 09, 2023 Assessment & Plan (1) Neurogenic claudication due to lumbar spinal stenosis: Plan: At this point we will continue physical therapy and anticipate discharge home Thursday. Admission and Anticipated Discharge Date Admission Date: May 05, 2023 Subjective Patient's back pain is controlled. Her right leg symptoms are improving. She feels she is ambulating with improved function. She is now tolerating small amounts of food. Physical Exam Physical Exam: Patient is currently in bed. She is comfortable. She does have continued deficits with hip flexion but quadriceps intact on the right. Results & Data Vital Signs (Past 12 Hours) Vital Signs Temp Pulse Resp BP Pulse Ox O2 Del Method 05/09/23 07:12 36.5 C 64 16 119/77 99 Room Air
--- NOTE | 2023-05-09 16:21 | Hospitalist Progress Note ---
Date of Service May 09, 2023 Assessment & Plan (1) S/P spinal surgery: (2) Neurogenic claudication due to lumbar spinal stenosis: Plan: This is a 72-year-old female with PMH of asthma, hypertension, postural dizziness with presyncope, history of aneurysm of thoracic aorta, dyslipidemia, hypothyroidism and other medical problems listed below who is POD#3 s/p removal of posterior instrumentation L4-5 L5-S1, exploration of fusion L4-L5 L5-S1 and revision decompression including bilateral medial facetectomies and foraminotomies L2-L3 L3-L4 by Dr. Valdivia. POD#4 s/p removal of posterior instrumentation L4-5 L5-S1, exploration of fusion L4-L5 L5-S1 and revision decompression including bilateral medial facetectomies and foraminotomies L2-L3 L3-L4 by Dr. Valdivia Per ortho for pain control, wound care, anticoagulation and activities Continue incentive spirometry, PT/OT when appropriate. Post op Hgb stable at 11.1. RLE weakness improved since surgery but still weak with decreased sensation compared to LLE Requires changes in position in ways not feasible in an ordinary bed in order to alleviate pain after back surgery. Pt also requires frequent changes in body position Acute Blood loss anemia: likely 2/2 victor hugo-op blood loss, complicated by hemodil ution EBL 100ml, pre-op hgb 14.6 Hgb stable around 11, blood pressure stable History of IBS, diarrhea: Diarrhea following surgery and bowel regimen. Resolved (3) Hypothyroidism: Plan: Chronic, stable. Continue levothyroxine (4) Asthma: Plan: Chronic, well controlled per patient. Continue Spiriva, Symbicort, zafirlukast, albuterol inh PRN, Duonebs PRN SOB or wheezing (5) Thoracic aortic aneurysm: Plan: CT scan of the chest performed on January 29, 2022 revealed atherosclerosis and tortuosity of the thoracic aorta, mild (4.2 cm) ascending aorta, PA-C Lenny monitoring (6) Diastolic dysfunction: Plan: Resting echocardiography in December 2022 with preserved LV systolic function, mild valve issues only, diastolic dysfunction. Continue Toprol, losartan Continue with/resume home meds as able (7) Dyslipidemia: Plan: Chronic, stable. Continue rosuvastatin (8) Acne vulgaris: Plan: Continue doxycycline, minocycline DVT Ppx: SCDs PCP: Kapil Dispo: Per primary service Admission and Anticipated Discharge Date Admission Date: May 05, 2023 Subjective Seen and examined in 309. Reports improvement in her diarrhea. Denies further dizziness, can discontinue electrolyte solution. Denies visual changes or palpitations. Vitals stable. No headache or fall. No F/C, CP, SOB, N/V, abdominal pain, dysuria. Back pain improved and RLE stronger 3/5 on exam. Physical Exam Physical Exam: GENERAL: Alert and oriented x3. NAD, on RA. HEENT: No pallor, no icterus. Pupils equal, round and reactive to light. Oral mucosa moist. NECK: No JVD, no neck masses. HEART: S1 and S2 heard. Regular rate and rhythm. No murmur, no gallop. RESPIRATORY SYSTEM: Normal AP diameter. No accessory muscle use. No wheezing, no crackles. ABDOMEN: Soft, bowel sounds present, nontender, no distention. CENTRAL NERVOUS SYSTEM: No facial droop. Speech is clear. Obeys simple commands. Moves extremities. RLE 3/5 EXTREMITIES: No edema, no erythema seen. Low back with clean dressing without soakage. Results & Data Results & Data Vital Signs (Past 12 Hours) Vital Signs Temp Pulse Resp BP Pulse Ox O2 Del Method 05/09/23 14:25 36.8 C 67 16 126/89 100 Room Air 05/09/23 07:12 36.5 C 64 16 119/77 99 Room Air
[2023-05-09] MEDS: LOPERAMIDE HCL 2 MG CAP PO PRN (16:29)
[2023-05-09] MEDS: ACETAMINOPHEN 500 MG TAB PO PRN (21:38)
[2023-05-10] MEDS: oxyCODONE HCL IR 5 MG TAB (IMMEDIATE RELEASE) PO PRN ×2 (03:57→07:54)
[2023-05-10] MEDS: LEVOTHYROXINE SODIUM 75 MCG TABLET PO SCH (05:54)
[2023-05-10 06:10] LABS: Hematocrit (blood only) 33.5 % (37.0-47.0); Hemoglobin 11.5 g/dl (12.0-16.0); Mean Corpuscular Hemoglobin 30.7 pg (25.0-34.0); Mean Corpuscular Hgb Conc 34.3 g/dL (32.0-36.0); Mean Corpuscular Volume 89.3 fL (80.0-100.0); Mean Platelet Volume 10.5 fL (9.4-12.4); Platelet Count 206 K/uL (130-400); RDW Coefficient of Variation 13.8 % (11.5-14.5); Red Blood Count 3.75 M/uL (4.20-5.40); White Blood Count 9.28 K/ul (4.8-10.8)
[2023-05-10 06:26] LABS: Calcium 8.3 mg/dl (8.6-10.3); Creatinine Clr Calc Pharmacy 89.1 ml/min; Est GFR (African American) 111.4 ml/min; Est GFR (Non-African American) 96.1 ml/min; Potassium 3.4 mmol/L (3.5-5.1)
[2023-05-10] MEDS: ZAFIRLUKAST 20MG: NON-FORMULARY PATIENT'S OWN MED PO SCH ×2 (07:45→19:36)
[2023-05-10] MEDS: SPIRONOLACTONE 25 MG TAB PO SCH (07:45)
[2023-05-10] MEDS: METOPROLOL SUCC 25MG EXT REL TAB PO SCH (07:46)
[2023-05-10] MEDS: CETIRIZINE HCL 10 MG TABLET PO SCH (07:46)
[2023-05-10] MEDS: MINOCYCLINE HCL 50 MG CAP PO SCH ×2 (07:46→19:38)
[2023-05-10] MEDS: LOSARTAN POTASSIUM 50 MG TAB PO SCH (07:46)
[2023-05-10] MEDS: ASPIRIN 81 MG ECTAB PO SCH (07:46)
[2023-05-10] MEDS: ROSUVASTATIN CALCIUM 20 MG TAB PO SCH (07:47)
[2023-05-10] MEDS: FLUTICASONE PROPIONATE NA SPR 16 GM BTL SCH ×2 (07:47→19:35)
[2023-05-10] MEDS: UMECLIDINIUM BROMIDE 62.5MCG/BLISTER 7 PUFFS/INHALER INH SCH (07:48)
[2023-05-10] MEDS: FLUTICASONE/VILANTEROL 100/25MCG 14 PUFFS/INHALER INH SCH (07:48)
[2023-05-10] MEDS: ONDANSETRON INJ 2 MG/ML 2 ML VIAL IV PRN (07:54)
[2023-05-10] MEDS ORDERED: POTASSIUM CHLORIDE CRTAB 20 MEQ TABCR PO STA (09:17)
--- NOTE | 2023-05-10 09:50 | Orthopedic Progress Note ---
Date of Service May 10, 2023 Assessment & Plan (1) Neurogenic claudication due to lumbar spinal stenosis: Plan: At this point she has not had a decline. She done very well with physical therapy yesterday and perhaps has irritation of the nerve roots. I initiated Decadron and Neurontin for nerve pain. I like to obtain a CAT scan lumbar spine to ensure there is been no loss of fixation. Admission and Anticipated Discharge Date Admission Date: May 05, 2023 Subjective Patient's back pain is controlled. Unfortunately last evening her right leg symptoms returned. She has significant hyperesthesia to the right anterior thigh. Left lower extremities asymptomatic. Physical Exam Physical Exam: On exam she is in obvious distress. She has hyperesthesia to palpation of the right thigh compared to the left. Her motor function is still diminished. Results & Data Vital Signs (Past 12 Hours) Vital Signs Temp Pulse Resp BP Pulse Ox O2 Del Method 05/10/23 06:52 36.7 C 72 16 136/84 98 Room Air
--- NOTE | 2023-05-10 10:54 | CT Scan Report ---
LUMBAR SPINE CT CT DOSE: 961.28 mGy.cm HISTORY: Right leg pain. postop TECHNIQUE: Multiaxial CT images of the lumbar spine were performed and reformatted in the sagittal an d coronal plane without the use of contrast. A dose lowering technique was utilized adhering to the principles of ALARA. COMPARISON: Lumbar spine MRI 03/12/2023. FINDINGS: Posterior decompression fusion from L2 through S1 with pedicle screws and rods. The right L 4 pedicle screw and left S1 pedicle screw head have been removed. L2-L3 and L3-L4 disc spaces appear in place. There is bony fusion of the L4-S1 vertebral bodies. No acute fracture or subluxation within the lumbar spine. The visualized hardware appears intact. No abnormal periprosthetic lucency. Bone g raft material at the L2-L4 pedicle screws is noted. The visualized sacrum is intact. Anastomotic sutu re material seen within the sigmoid colon. Paravertebral soft tissues appear unremarkable. Small amou nt of gas and a fluid collection at the laminectomy sites from the L2-L5 levels is noted. The fluid c ollection measures approximately 8 x 5 x 3 cm. This is nonspecific but favors a postoperative seroma. This does not appear to result in significant mass effect on the thecal sac. Of note, there is near nondiagnostic evaluation of the central canal due to the CT technique. However, there is no significa nt central canal narrowing identified. IMPRESSION: 1. No acute fractures within the lumbar spine. 2. Posterior decompression and fusion from L2 through S1. The hardware appears intact. 3. Small amount of gas and a fluid collection at the laminectomy sites from L2 through L5. The fluid collection measures 8 x 5 x 3 cm. This is nonspecific but favors a postoperative seroma. This does no t appear to result in significant mass effect on the thecal sac. ACT 112: Negative or not required by law. Electronically signed by: Telly Engle M.D. 05/10/2023 10:52 AM
[2023-05-10] MEDS: GABAPENTIN 300 MG CAP PO SCH ×2 (13:26→19:37)
[2023-05-10] MEDS: traMADol HCL 50 MG TABLET PO PRN ×2 (13:33→22:14)
--- NOTE | 2023-05-10 15:35 | Hospitalist Progress Note ---
Date of Service May 10, 2023 Assessment & Plan (1) S/P spinal surgery: (2) Neurogenic claudication due to lumbar spinal stenosis: Plan: This is a 72-year-old female with PMH of asthma, hypertension, postural dizziness with presyncope, history of aneurysm of thoracic aorta, dyslipidemia, hypothyroidism and other medical problems listed below who is POD#3 s/p removal of posterior instrumentation L4-5 L5-S1, exploration of fusion L4-L5 L5-S1 and revision decompression including bilateral medial facetectomies and foraminotomies L2-L3 L3-L4 by Dr. Valdivia. POD#5 s/p removal of posterior instrumentation L4-5 L5-S1, exploration of fusion L4-L5 L5-S1 and revision decompression including bilateral medial facetectomies and foraminotomies L2-L3 L3-L4 by Dr. Valdivia Per ortho for pain control, wound care, anticoagulation and activities Continue incentive spirometry, PT/OT when appropriate. Post op Hgb stable at 11.1. RLE weakness improved since surgery but still weak with decreased sensation compared to LLE Requires changes in position in ways not feasible in an ordinary bed in order to alleviate pain after back surgery. Pt also requires frequent changes in body position Acute Blood loss anemia: likely 2/2 victor hugo-op blood loss, complicated by hemodil ution EBL 100ml, pre-op hgb 14.6 Hgb stable around 11, blood pressure stable History of IBS, diarrhea: Diarrhea following surgery and bowel regimen. monitor, electrolyte solution. (3) Hypothyroidism: Plan: Chronic, stable. Continue levothyroxine (4) Asthma: Plan: Chronic, well controlled per patient. Continue Spiriva, Symbicort, zafirlukast, albuterol inh PRN, Duonebs PRN SOB or wheezing (5) Thoracic aortic aneurysm: Plan: CT scan of the chest performed on January 29, 2022 revealed atherosclerosis and tortuosity of the thoracic aorta, mild (4.2 cm) ascending aorta, PA-C Lenny m onitoring (6) Diastolic dysfunction: Plan: Resting echocardiography in December 2022 with preserved LV systolic function, mild valve issues only, diastolic dysfunction. Continue Toprol, losartan Continue with/resume home meds as able (7) Dyslipidemia: Plan: Chronic, stable. Continue rosuvastatin (8) Acne vulgaris: Plan: Continue doxycycline, minocycline DVT Ppx: SCDs PCP: Kapil Dispo: Per primary service Admission and Anticipated Discharge Date Admission Date: May 05, 2023 Subjective Seen and examined in 309. Reports recurrence of her diarrhea. Denies further dizziness, c/w electrolyte solution. Denies visual changes or palpitations. Vitals stable. No headache or fall. No F/C, CP, SOB, N/V, abdominal pain, dysuria. Back pain improved and RLE stronger 3/5 on exam. reports reappearing of RLE radicular symptoms w/ rt ant thigh paresthesias. Physical Exam Physical Exam: GENERAL: Alert and oriented x3. NAD, on RA. HEENT: No pallor, no icterus. Pupils equal, round and reactive to light. Oral mucosa moist. NECK: No JVD, no neck masses. HEART: S1 and S2 heard. Regular rate and rhythm. No murmur, no gallop. RESPIRATORY SYSTEM: Normal AP diameter. No accessory muscle use. No wheezing, no crackles. ABDOMEN: Soft, bowel sounds present, nontender, no distention. CENTRAL NERVOUS SYSTEM: No facial droop. Speech is clear. Obeys simple commands. Moves extremities. RLE 3/5 EXTREMITIES: No edema, no erythema seen. Low back with clean dressing without soakage. Results & Data Results & Data Vital Signs (Past 12 Hours) Vital Signs Temp Pulse Resp BP Pulse Ox O2 Del Method 05/10/23 14:46 36.6 C 71 16 106/74 99 Room Air 05/10/23 06:52 36.7 C 72 16 136/84 98 Room Air
[2023-05-10] MEDS: ACETAMINOPHEN 500 MG TAB PO PRN (18:28)
[2023-05-10] MEDS: dexAMETHasone 8 MG in SYRINGE 0 ML IV SCH (19:36)
[2023-05-11] MEDS: LEVOTHYROXINE SODIUM 75 MCG TABLET PO SCH (06:00)
[2023-05-11] MEDS: ZAFIRLUKAST 20MG: NON-FORMULARY PATIENT'S OWN MED PO SCH ×2 (06:00→19:22)
[2023-05-11 06:32] LABS: Hematocrit (blood only) 36.1 % (37.0-47.0); Hemoglobin 12.6 g/dl (12.0-16.0); Mean Corpuscular Hemoglobin 30.4 pg (25.0-34.0); Mean Corpuscular Hgb Conc 34.9 g/dL (32.0-36.0); Mean Platelet Volume 10.4 fL (9.4-12.4); Platelet Count 249 K/uL (130-400); RDW Coefficient of Variation 13.2 % (11.5-14.5); RDW Standard Deviation 41.5 fL (36.4-46.3); Red Blood Count 4.15 M/uL (4.20-5.40); White Blood Count 9.91 K/ul (4.8-10.8)
[2023-05-11 07:30] LABS: BUN Creatinine Ratio 24.1 (10-20); Calcium 8.7 mg/dl (8.6-10.3); Creatinine Clr Calc Pharmacy 79.9 ml/min; Est GFR (African American) 107.5 ml/min; Est GFR (Non-African American) 92.7 ml/min; Magnesium 1.5 mg/dl (1.7-2.4); Phosphorus 4.5 mg/dl (2.5-4.9); Potassium 4.3 mmol/L (3.5-5.1)
[2023-05-11] MEDS: ADVANCED PROBIOTIC 1250 MG CAPSULE PO SCH (08:25)
[2023-05-11] MEDS: GABAPENTIN 300 MG CAP PO SCH ×3 (08:25→19:21)
[2023-05-11] MEDS: ASPIRIN 81 MG ECTAB PO SCH (08:25)
[2023-05-11] MEDS: SPIRONOLACTONE 25 MG TAB PO SCH (08:26)
[2023-05-11] MEDS: COLESTIPOL HCL 1 GM TAB PO PRN (08:26)
[2023-05-11] MEDS: MINOCYCLINE HCL 50 MG CAP PO SCH ×2 (08:26→19:22)
[2023-05-11] MEDS: METOPROLOL SUCC 25MG EXT REL TAB PO SCH (08:26)
[2023-05-11] MEDS: ROSUVASTATIN CALCIUM 20 MG TAB PO SCH (08:26)
[2023-05-11] MEDS: LOSARTAN POTASSIUM 50 MG TAB PO SCH (08:26)
[2023-05-11] MEDS: CETIRIZINE HCL 10 MG TABLET PO SCH (08:26)
[2023-05-11] MEDS: dexAMETHasone 8 MG in SYRINGE 0 ML IV SCH ×2 (08:27→19:20)
[2023-05-11] MEDS: UMECLIDINIUM BROMIDE 62.5MCG/BLISTER 7 PUFFS/INHALER INH SCH (08:29)
[2023-05-11] MEDS: FLUTICASONE PROPIONATE NA SPR 16 GM BTL SCH ×2 (08:29→19:20)
[2023-05-11] MEDS: FLUTICASONE/VILANTEROL 100/25MCG 14 PUFFS/INHALER INH SCH (08:29)
--- NOTE | 2023-05-11 09:00 | Orthopedic Progress Note ---
Date of Service May 11, 2023 Assessment & Plan (1) Neurogenic claudication due to lumbar spinal stenosis: Plan: This time her pain seems to be improving appropriately. We will continue with observation and physical therapy of the next day or so. Hopefully discharge home later this week. Admission and Anticipated Discharge Date Admission Date: May 05, 2023 Subjective Right leg symptoms markedly improved today. Her strength is improving. Physical Exam Physical Exam: On exam she appears more comfortable. She is able to demonstrate increased hip flexion and quadricep function on the right Results & Data Vital Signs (Past 12 Hours) Vital Signs Temp Pulse Resp BP Pulse Ox O2 Del Method 05/11/23 08:18 36.9 C 70 16 117/71 96 Room Air 05/10/23 22:04 36.6 C 69 18 111/70 98 Room Air
[2023-05-11] MEDS: traMADol HCL 50 MG TABLET PO PRN ×2 (09:11→19:19)
[2023-05-11] MEDS: MAGNESIUM SULFATE / D5W 1 GM/100 ML BAG IV SCH ×2 (10:05→12:26)
--- NOTE | 2023-05-11 15:27 | Hospitalist Progress Note ---
Date of Service May 11, 2023 Assessment & Plan (1) S/P spinal surgery: (2) Neurogenic claudication due to lumbar spinal stenosis: Plan: This is a 72-year-old female with PMH of asthma, hypertension, postural dizziness with presyncope, history of aneurysm of thoracic aorta, dyslipidemia, hypothyroidism and other medical problems listed below who is POD#3 s/p removal of posterior instrumentation L4-5 L5-S1, exploration of fusion L4-L5 L5-S1 and revision decompression including bilateral medial facetectomies and foraminotomies L2-L3 L3-L4 by Dr. Valdivia. POD#6 s/p removal of posterior instrumentation L4-5 L5-S1, exploration of fusion L4-L5 L5-S1 and revision decompression including bilateral medial facetectomies and foraminotomies L2-L3 L3-L4 by Dr. Valdivia Per ortho for pain control, wound care, anticoagulation and activities Continue incentive spirometry, PT/OT when appropriate. Post op Hgb stable at 11.1. RLE weakness improved since surgery but still weak with decreased sensation compared to LLE Requires changes in position in ways not feasible in an ordinary bed in order to alleviate pain after back surgery. Pt also requires frequent changes in body position Acute Blood loss anemia: likely 2/2 victor hugo-op blood loss, complicated by hemodil ution EBL 100ml, pre-op hgb 14.6 Hgb stable around 11, blood pressure stable History of IBS, diarrhea: Diarrhea following surgery and bowel regimen. monitor, electrolyte solution. Improving. (3) Hypothyroidism: Plan: Chronic, stable. Continue levothyroxine (4) Asthma: Plan: Chronic, well controlled per patient. Continue Spiriva, Symbicort, zafirlukast, albuterol inh PRN, Duonebs PRN SOB or wheezing (5) Thoracic aortic aneurysm: Plan: CT scan of the chest performed on January 29, 2022 revealed atherosclerosis and tortuosity of the thoracic aorta, mild (4.2 cm) ascending aorta, PA-C Lenny monitoring (6) Diastolic dysfunction: Plan: Resting echocardiography in December 2022 with preserved LV systolic function, mild valve issues only, diastolic dysfunction. Continue Toprol, losartan Continue with/resume home meds as able (7) Dyslipidemia: Plan: Chronic, stable. Continue rosuvastatin (8) Acne vulgaris: Plan: Continue doxycycline, minocycline DVT Ppx: SCDs PCP: Kapil Dispo: Per primary service Admission and Anticipated Discharge Date Admission Date: May 05, 2023 Subjective Seen and examined in 309. Reports improvement in her diarrhea. Denies further dizziness, c/w electrolyte solution as needed. Denies visual changes or palpitations. Vitals stable. No headache or fall. No F/C, CP, SOB, N/V, abdominal pain, dysuria. Back pain improved and RLE stronger 3/5 on exam. reports improvement of RLE radicular symptoms danisha rt ant thigh paresthesias. Physical Exam Physical Exam: GENERAL: Alert and oriented x3. NAD, on RA. HEENT: No pallor, no icterus. Pupils equal, round and reactive to light. Oral mucosa moist. NECK: No JVD, no neck masses. HEART: S1 and S2 heard. Regular rate and rhythm. No murmur, no gallop. RESPIRATORY SYSTEM: Normal AP diameter. No accessory muscle use. No wheezing, no crackles. ABDOMEN: Soft, bowel sounds present, nontender, no distention. CENTRAL NERVOUS SYSTEM: No facial droop. Speech is clear. Obeys simple commands. Moves extremities. RLE 3/5 EXTREMITIES: No edema, no erythema seen. Low back with clean dressing without soakage. Results & Data Results & Data Vital Signs (Past 12 Hours) Vital Signs Temp Pulse Resp BP Pulse Ox O2 Del Method 05/11/23 14:48 36.5 C 66 16 115/74 98 Room Air 05/11/23 08:18 36.9 C 70 16 117/71 96 Room Air
[2023-05-12] MEDS: LEVOTHYROXINE SODIUM 75 MCG TABLET PO SCH (05:40)
[2023-05-12] MEDS: ZAFIRLUKAST 20MG: NON-FORMULARY PATIENT'S OWN MED PO SCH (05:41)
[2023-05-12] MEDS: FLUTICASONE/VILANTEROL 100/25MCG 14 PUFFS/INHALER INH SCH (08:38)
[2023-05-12] MEDS: FLUTICASONE PROPIONATE NA SPR 16 GM BTL SCH (08:38)
[2023-05-12] MEDS: ROSUVASTATIN CALCIUM 20 MG TAB PO SCH (08:41)
[2023-05-12] MEDS: METOPROLOL SUCC 25MG EXT REL TAB PO SCH (08:41)
[2023-05-12] MEDS: MINOCYCLINE HCL 50 MG CAP PO SCH (08:41)
[2023-05-12] MEDS: SPIRONOLACTONE 25 MG TAB PO SCH (08:41)
[2023-05-12] MEDS: ADVANCED PROBIOTIC 1250 MG CAPSULE PO SCH (08:42)
[2023-05-12] MEDS: LOSARTAN POTASSIUM 50 MG TAB PO SCH (08:42)
[2023-05-12] MEDS: GABAPENTIN 300 MG CAP PO SCH (08:42)
[2023-05-12] MEDS: ASPIRIN 81 MG ECTAB PO SCH (08:42)
[2023-05-12] MEDS: CETIRIZINE HCL 10 MG TABLET PO SCH (08:43)
[2023-05-12] MEDS: dexAMETHasone 8 MG in SYRINGE 0 ML IV SCH (09:17)
[2023-05-12 09:36] LABS: BUN Creatinine Ratio 26.7 (10-20); Calcium 8.5 mg/dl (8.6-10.3); Creatinine Clr Calc Pharmacy 77.2 ml/min; Est GFR (African American) 106.3 ml/min; Est GFR (Non-African American) 91.7 ml/min; Magnesium 1.8 mg/dl (1.7-2.4); Potassium 3.8 mmol/L (3.5-5.1)
--- NOTE | 2023-05-12 10:24 | Discharge Summary ---
Date of Service May 12, 2023 Admission HPI Per Admitting Provider This is a 72-year-old female who presents with chronic persistent back and leg pain after failing course of nonoperative care is here for surgical invention. Principal Diagnosis Lumbar spinal stenosis with radiculopathy Discharge Data Allergies Allergy/AdvReac Type Severity Reaction Status Date / Time diphtheria, pertussis, Allergy Intermediate rash Verified 05/05/23 11:19 tetanus vacc isotretinoin Allergy Unknown MYALGIAS Verified 05/05/23 11:19 latex Allergy Unknown Rash Verified 05/05/23 11:19 Sulfa (Sulfonamide Allergy Unknown Rash Verified 05/05/23 11:19 Antibiotics) Consultations 05/05/23 18:32 Consult Hospitalist Routine Procedures Performed Operation Date: 05/05/23 12:25 Actual Procedures p L2-L4 Decompression and Fusion L4-S1 Hardware Removal Spinal Cord Monitoirng(Not Applicable) - Austin Valdivia DO Ordered Studies 05/05/23 12:25 FL lumbar spine 2-3V Routine 05/10/23 09:48 CT lumbar spine wo con Routine Hospital Course (1) Neurogenic claudication due to lumbar spinal stenosis: Patient underwent multilevel lumbar decompression fusion tolerates well was taken to orthopedic floor postoperative. Postop day #1 she is struggling with some significant weakness to the right lower extremity. This was the area of the severe compression. She progressed appropriately throughout her hospital stay steadily rebuilding her strength and pain becoming more controlled. Subsequently she was discharged home. Discharge orders instructions from the chart for further review. Total Time Total Time Spent Total Time Spent (In Minutes): 20 minutes Discharge Plan Discharge Items Patient Disposition: Home - Home Health Services Reason For Visit: POSTOP Discharge Diagnosis: lumbar stenosis Activity: As commented below Non-emergency contact: Primary Care Provider Call non-emergency contact if: you have any medication questions Follow-up/Referrals: Kimo Dick MD [Primary Care Provider] - Diet: Regular Addtl Attending Provider Instructions: ACTIVITY RECOMMENDATIONS: SELF CARE INSTRUCTIONS AFTER THORACIC/LUMBAR FUSIONS 1. You may walk to your tolerance. It is good exercise for your legs and back. Expect some back and intermittent leg aches and pains. 2. You may perform "counter-top" level activities (make a sandwich, velvet with a project, etc.). 3. No bending or lifting of more than 10 pounds or back twisting of any nature (roll like a log when turning in bed). 4. You may ride in a car for 20-30 minutes at a time. No driving until after your first visit with your doctor. 5. Frequent changes of position and restricting sitting to 30 minutes at a time will help limit the amount of back spasms and stiffness you may experience. 6. You may discontinue the use of ambulatory aids (cane, crutches, etc.) once your strength and confidence allow. 7. You may projection printer the shower and let water strike your incision when you arrive home at least once daily. Do not take a tub bath, sit in a hot tub or go into a swimming pool until after your first recheck in the office. SPECIAL CARE INSTRUCTIONS: VERY IMPORTANT TO READ AND REVIEW A. Your surgical incision has been closed with a cosmetic suture under the skin that will dissolve in about 6 weeks. In 14 days, you can use a pair of clean scissors and cut the suture that is left outside of the skin at the ends of your incision. 1. The small skin tapes can be removed 7 days after surgery if they have not fallen off by that point. 2. You may keep the wound open to air as much as possible to promote healing after post-op day number 5 unless told otherwise by your doctor. 3. If you think the wound looks like it is becoming infected (redness or worsening drainage) and/or you are experiencing fever, chill or worsening back pain and muscle spasms, contact the office so that we may evaluate you as soon as possible. B. Complications are uncommon, but please contact us if you have any signs or symptoms of: 1. wound infection (fever higher than 102.5 degrees F, redness, separation of wound, drainage, or increasing pain from the incision) 2. blood clots in legs (pain, swelling, redness and warmth in legs) 3. urinary tract infection (fever higher than 102.5 degrees F, burning upon urination or increased frequency of urination) 4. nerve problems (inability to walk on your toes or heels, numbness, loss of bowel or bladder control) 5. any other symptoms that concern you C. Please call the office at if you have any concerns or questions about your operation or recovery. D. No smoking! Smoking drastically decreases the chance of a solid fusion. E. Do not take any anti-inflammatory medications (Indocin, Advil, Motrin, Aspirin, Naprosyn, etc.) as these may inhibit the chance of a solid fusion. Tylenol is okay to take for pain. MANAGING PAIN AFTER SPINAL SURGERY 1. Narcotic medication is intended for short-term use and will be provided for surgical pain. Surgical pain usually lasts for a period of 4-6 weeks. Narcotic medication includes Percocet, Vicodin, Darvocet, Tylenol #3 or Lortab. 2. Longer-term pain is more appropriately treated with non-narcotic medication such as Tylenol ES. 3. Muscle spasm is not appropriately treated with narcotics. Muscle relaxers such as Soma, Flexeril or Skelaxin can be used along with Tylenol ES. 4. Remember that we all live with some "aches and pains". This is not unusual or uncommon after an injury or as we get older. a. Back pain is expected and may include muscle spasms for 4 to 6 weeks after surgery. The pain should gradually improve. If the pain worsens for no apparent reason, please contact the office. b. Intermittent leg pain may also be experienced and should not be concerned about unless it worsens for no apparent reason. If so, please contact the office. 5. We will provide appropriate medication within the normal guidelines of their prescribed use. We will also be very cautious and aware of potential abuse and extended duration of patients' medication needs. a. Pain medications are for your comfort and to assist with sleep and rest so that the tissue can heal. They are not provided in order to return to normal activity and should not be used through the day. To do so or worsening pain at night can result from ongoing tissue damage and development of tolerance to the prescribed medicine. 6. Please allow 2-3 days to process refills. Prescriptions will not be mailed but must be picked up at the office. FOLLOW UP VISIT: Keep your scheduled follow-up appointment. Any questions, please call the office at . Pending Studies at Discharge: No Stand-Alone Forms: My Last Size, Smoking Cessation Medications and DC Order Prescriptions: New tramadol 50 mg tablet 50 mg PO Q6H PRN (Reason: pain, moderate) Qty: 30 0RF oxycodone 5 mg tablet 5 mg PO Q6H PRN (Reason: pain) Qty: 30 0RF gabapentin 300 mg Capsule 300 mg PO TID Qty: 90 0RF Continued albuterol sulfate 90 mcg/actuation aerosol powdr breath activated 2 inh INH Q4H PRN (Reason: shortness of breath or wheezing) Qty: 1 5RF Spiriva Respimat 1.25 mcg/actuation mist 2 puff inhalation DAILY budesonide-formoterol [Symbicort] 80-4.5 mcg/actuation HFA aerosol inhaler 2 inh inhalation BID albuterol sulfate 2.5 mg /3 mL (0.083 %) solution for nebulization 1.25 mg INH Q4H PRN (Reason: Shortness Of Breath Or Wheezing) doxycycline hyclate 50 mg capsule 50 mg PO DAILY PRN (Reason: acne flare up) epinephrine 0.3 mg/0.3 mL auto-injector 0.3 mg IM Q10M PRN (Reason: Allergic Reaction) losartan 25 mg tablet 50 mg PO QAM spironolactone 25 mg tablet 50 mg PO QAM rosuvastatin 5 mg tablet 25 mg PO QAM ipratropium bromide 21 mcg (0.03 %) spray,non-aerosol See Rx Instructions .ROUTE .COMPLEX Qty: 30 5RF Rx Instructions: Use 1-2 sprays each nostril 1-2 times daily.; administer into each nostril zafirlukast 20 mg tablet See Rx Instructions .ROUTE .COMPLEX Qty: 60 11RF Dose Instruction: TAKE 1 TABLET BY MOUTH TWICE DAILY ON AN EMPTY STOMACH AT LEAST 1 HOUR BEFORE , OR 2 HOURS AFTER , MEAL OR FOOD Rx Instructions: TAKE 1 TABLET BY MOUTH TWICE DAILY ON AN EMPTY STOMACH AT LEAST 1 HOUR BEFORE , OR 2 HOURS AFTER , MEAL OR FOOD cetirizine 5 mg Tablet 5 mg PO DAILY levothyroxine 75 mcg Tablet 75 mcg PO QAM azelastine 137 mcg (0.1 %) Aerosol,[place] 1 spray INTRANASAL QAM Rx Instructions: administer into each nostril fluticasone propionate 50 mcg/actuation [place],Suspension 1 spray INTRANASAL BID Rx Instructions: administer into each nostril aspirin 81 mg Capsule 81 mg PO QAM metoprolol succinate 25 mg tablet extended release 24 hr 25 mg PO DAILY minocycline 100 mg capsule 100 mg PO BID gabapentin 300 mg Capsule 300 mg PO DAILY PRN (Reason: Pain) Discharge Orders: Discharge Order (Routine); Ordered 05/12/23 Ordered By: Austin Valdivia Admission Data Admit Date/Time: 05/05/23 17:29 Attending Provider: Austin Valdivia Admit Provider: Austin Valdivia Primary Care Provider: Kimo Dick Other Providers: Madhuri Crabtree ; Leonides Dunham ; Elza Kothari ; [place]
[2023-05-12] MEDS: UMECLIDINIUM BROMIDE 62.5MCG/BLISTER 7 PUFFS/INHALER INH SCH (11:34)
--- NOTE | 2023-05-12 14:19 | Hospitalist Progress Note ---
Date of Service May 12, 2023 Assessment & Plan (1) S/P spinal surgery: (2) Neurogenic claudication due to lumbar spinal stenosis: Plan: This is a 72-year-old female with PMH of asthma, hypertension, postural dizziness with presyncope, history of aneurysm of thoracic aorta, dyslipidemia, hypothyroidism and other medical problems listed below who is POD#3 s/p removal of posterior instrumentation L4-5 L5-S1, exploration of fusion L4-L5 L5-S1 and revision decompression including bilateral medial facetectomies and foraminotomies L2-L3 L3-L4 by Dr. Valdivia. POD#7 s/p removal of posterior instrumentation L4-5 L5-S1, exploration of fusion L4-L5 L5-S1 and revision decompression including bilateral medial facetectomies and foraminotomies L2-L3 L3-L4 by Dr. Valdivia Per ortho for pain control, wound care, anticoagulation and activities Continue incentive spirometry, PT/OT when appropriate. Post op Hgb stable at 11.1. RLE weakness improved since surgery but still weak with decreased sensation compared to LLE Requires changes in position in ways not feasible in an ordinary bed in order to alleviate pain after back surgery. Pt also requires frequent changes in body position Acute Blood loss anemia: likely 2/2 victor hugo-op blood loss, complicated by hemodil ution EBL 100ml, pre-op hgb 14.6 Hgb stable around 11, blood pressure stable History of IBS, diarrhea: Diarrhea following surgery and bowel regimen. monitor, electrolyte solution. resolved. (3) Hypothyroidism: Plan: Chronic, stable. Continue levothyroxine (4) Asthma: Plan: Chronic, well controlled per patient. Continue Spiriva, Symbicort, zafirlukast, albuterol inh PRN, Duonebs PRN SOB or wheezing (5) Thoracic aortic aneurysm: Plan: CT scan of the chest performed on January 29, 2022 revealed atherosclerosis and tortuosity of the thoracic aorta, mild (4.2 cm) ascending aorta, PA-C Lenny monitoring (6) Diastolic dysfunction: Plan: Resting echocardiography in December 2022 with preserved LV systolic function, mild valve issues only, diastolic dysfunction. Continue Toprol, losartan Continue with/resume home meds as able (7) Dyslipidemia: Plan: Chronic, stable. Continue rosuvastatin (8) Acne vulgaris: Plan: Continue doxycycline, minocycline DVT Ppx: SCDs PCP: Kapil Dispo: Per primary service Admission and Anticipated Discharge Date Admission Date: May 05, 2023 Subjective Seen and examined in 309. Reports improvement in her diarrhea. Denies further dizziness, c/w electrolyte solution as needed. Denies visual changes or palpitations. Vitals stable. No headache or fall. No F/C, CP, SOB, N/V, abdominal pain, dysuria. Back pain improved and RLE stronger 3/5 on exam. reports improvement of RLE radicular symptoms danisha rt ant thigh paresthesias. Physical Exam Physical Exam: GENERAL: Alert and oriented x3. NAD, on RA. HEENT: No pallor, no icterus. Pupils equal, round and reactive to light. Oral mucosa moist. NECK: No JVD, no neck masses. HEART: S1 and S2 heard. Regular rate and rhythm. No murmur, no gallop. RESPIRATORY SYSTEM: Normal AP diameter. No accessory muscle use. No wheezing, no crackles. ABDOMEN: Soft, bowel sounds present, nontender, no distention. CENTRAL NERVOUS SYSTEM: No facial droop. Speech is clear. Obeys simple commands. Moves extremities. RLE 3/5 EXTREMITIES: No edema, no erythema seen. Low back with clean dressing without soakage. Results & Data Results & Data Vital Signs (Past 12 Hours) Vital Signs Temp Pulse Resp BP Pulse Ox O2 Del Method 05/12/23 08:17 36.9 C 60 18 112/68 95 Room Air
== END 2023-05-12 13:00 | disposition home health service (06) | DRG 454 ==
LOC: ASU 10:47 → 3E 17:29